=== PATIENT | female | born 1955 | race Caucasian/White ===

== ENCOUNTER 2021-09-13 09:12 | Inpatient (IN) | payer MEDICARE, OTHER, SELFPAY ==
[2021-09-13] VITALS (37 sets, daily range): BP systolic 95–140; BP diastolic 53–96; PULSE 44–74; RESP 10–17; TEMP 36.4–37.1; O2SAT 95–100; BMI 26.1
--- NOTE | 2021-09-13 09:21 | EKG12_ITS ---
Test Reason : CP Blood Pressure : / mmHG Vent. Rate : 045 BPM Atrial Rate : 045 BPM P-R Int : 170 ms QRS Dur : 088 ms QT Int : 464 ms P-R-T Axes : 052 040 084 degrees QTc Int : [address] elevation consider inferior injury or acute infarct ACUTE [place] / STEMI Consider right ventricular involvement in acute inferior infarct Abnormal ECG Confirmed by TLYER MERIDA, CYNTHIA ([id number]), editor farm journal VIVI GRAY ([id number]) on 09/15/2021 10:01:21 AM Referred By: Maya Miller Confirmed By:CYNTHIA SCOTT MD
--- NOTE | 2021-09-13 09:22 | EDS_ITS ---
HPI History of Present Illness Chief Complaint: Chest Pain Informant: patient Onset/Context/Timing Onset: Hours Activity at onset: sudden Quality: Positive for Heaviness and Pain Location: Substernal Current Severity: Moderate Maximum Severity: Severe Narrative Narrative: Patient presents via private vehicle secondary to chest pain that started 1 hour prior to arrival. She did take a full size aspirin. Patient does admit that she is been having some intermittent chest pain. She states pain radiates to her back and on her arms. She feels lightheaded and nauseated. No known history of cardiac disease. [facility] Medical History Rheumatoid arthritis Home Medications oxybutynin chloride 10 mg PO DAILY 09/13/21 [History Last Taken Unknown] Allergy/AdvReac Type Severity Reaction Status Date / Time No Known Allergies Allergy Verified 09/13/21 09:13 Surgical History Hx of section Hx of cholecystectomy Social History Smoking Status: Never smoker ROS ROS ED Constitutional Constitutional ED: Denies chills or fever(s) Eyes Eyes: Denies none ENT ENT ED: Denies rhinorrhea or sore throat Cardiovascular Cardiovascular: Reports chest pain Respiratory/Chest Respiratory/Chest: Denies cough or dyspnea Gastrointestinal Gastrointestinal: Reports nausea; Denies abdominal pain or vomiting Musculoskeletal Musculoskeletal: Reports back pain Integumentary Denies rash Neurologic Neurologic: Denies headache(s) or weakness Allergic/Immunologic Allergic/Immunologic ED: Denies urticaria EXAM Physical Exam Const Vital Signs: 09/13/21 09:13 09/13/21 09:28 09/13/21 09:33 Temperature 97.6 F L Temperature Source Oral Pulse Rate 44 L Respiratory Rate 15 14 Respiratory Effort Normal Respiratory Pattern Normal Blood Pressure 95/53 L 95/53 L Blood Pressure Mean 67 Pulse Ox 99 100 Oxygen Delivery Method Room Air Nasal Cannula Oxygen Flow Rate (L/min) 2 Positive well nourished and well developed General Appearance ED: well developed HEENT normocephalic Eyes PERRL and EOMs intact bilaterally Neck supple Chest Wall inspection of chest normal and palpation of chest normal Resp normal respiratory effort Effort and Inspection: respiratory distress Cardio Rate: bradycardia GI soft to palpation and non-tender Neuro oriented x3 Sensorium / Orientation: awake and alert Psych mental status grossly normal Skin no rashes or lesions noted Heart Score History: Highly Suspicious ECG: Significant ST-Depression Age: >/= 65 years Risk Factors: 1 or 2 Risk Factors Score: 7 MDM MDM Radiography Chest X-Ray - ED: 1 View, Read by ED Physician, Normal, Heart, Lungs and Mediastinum EKG Initial EKG: Attestation: I personally reviewed and interpreted this EKG as follows: Interpretation: Sinus Bradycardia (Sinus bradycardia at [address] elevation in the inferior leads and reciprocal changes in the anterior leads. Acute STEMI called.) Treatment and Re-Evaluation Comments:: STEMI alert initiated. Patient had taken full-size aspirin prior to arrival. She is given Zofran for nausea along with a dose of fentanyl for pain. She is given Brilinta and heparin. I spoke with Dr. Miller, STEMI physician. EKG was core texted to him. Discharge Plan Triage Chief Complaint: Chest Pain ED Provider: Estrella Odonnell Dx/Rx/DC Orders Clinical Impression: ST elevation ID (STEMI) Prescriptions: No Action oxybutynin chloride 10 mg tablet extended release 24hr 10 mg PO DAILY RF: 0 Primary Care Provider: Bandar Lopez Referrals: Bandar Lopez MD [Primary Care Provider] - Disposition Disposition: Acute Care Hospital [facility]
[2021-09-13] MEDS: Heparin Injection (Vial) 5,000 UNIT/ML VIAL 4000 UNIT IV (09:24)
[2021-09-13] MEDS: TICAGRELOR 90 MG TABLET 180 MG PO (09:24)
[2021-09-13] MEDS: Ondansetron 4 MG/2 ML Vial IV (09:26)
--- NOTE | 2021-09-13 09:26 | NURSING ---
STEMI ALERT 0921
[2021-09-13] MEDS: 0.9% Normal Saline 1,000 ML 999 ML IV (09:30)
--- NOTE | 2021-09-13 09:30 | NURSING ---
ICU 5 [facility]
[2021-09-13] MEDS: fentaNYL 100 MCG/2 ML Ampul 25 MCG IV (09:31)
--- NOTE | 2021-09-13 09:35 | RAD_ITS ---
STUDY: X-RAY CHEST REASON FOR EXAM: Female, 66 years old. Chest pain TECHNIQUE: Single AP portable view of the chest. COMPARISON: None. FINDINGS: The lungs are clear and expanded. There is no demonstrated pleural abnormality. Normal size heart. Normal mediastinum and qiana. Normal visualized pulmonary arteries. Normal visualized aortic arch and descending thoracic aorta. There are diffuse degenerative changes of the visualized thoracic spine. Normal visualized ribs, clavicles, and shoulders. There is no demonstrated abnormality of the visualized soft tissue structures of the upper abdomen. RAD/Chest 1 View (Portable) IMPRESSION: Degenerative changes, as described above. No demonstrated acute cardiopulmonary process. Electronically Signed: Niki Soils MD at 9:47 EST Reading Location ID and State: [facility] / [place] Tel , Service support ,
[2021-09-13] MEDS: 0.9% Normal Saline 1,000 ML 150 ML IV (09:40)
--- NOTE | 2021-09-13 09:43 | NURSING ---
DR POWELL ADMITTING PATIENT
[2021-09-13 09:46] LABS: Absolute Lymphocyte Count 3.09 X10^3/uL (0.83-4.51); Absolute Neutrophil Count 2.3 X10^3/uL (2.0-7.7); Basophil# 0.11 X10^3/uL; Basophil% 1.8 % (0-1); Eosinophil# 0.09 X10^3/uL; Eosinophils% 1.5 % (0-5); Hematocrit 44.2 % (37-47); Hemoglobin 14.4 g/dL (12.0-15.0); Lymphocyte # 3.09 X10^3/ul (0.83-4.51); Lymphocyte % 50.6 % (19-41); Mean Corp Hgb Conc 32.6 g/dL (32-36); Mean Corpuscular Hgb 31.4 pg (27.0-32.0); Mean Corpuscular Volume 96.3 fL (81-99); Mean Platelet Vol. 10.2 fl (6.2-12.0); Monocyte# 0.52 X10^3/uL; Monocyte% 8.5 % (0-10); NRBC Flagged by Analyzer 0 % (0-5); Neutrophil # 2.28 X10^3/uL (2.7-7.7); Neutrophil % 37.3 % (47-70); Platelet Count 256 K/mm3 (150-450); RBC Distribution Width CV 13.3 % (11.6-14.6); RBC Distribution Width SD 47.1 fl (35.1-43.9); Red Blood Count 4.59 M/mm3 (4.2-5.4); White Blood Count 6.1 K/mm3 (4.4-11.0)
[2021-09-13 10:04] LABS: Anion Gap 8 (5-15); BUN 18 mg/dL (7-18); BUN/Creat Ratio 19.5 RATIO (10-20); Calcium,Total 8.8 mg/dL (8.5-10.1); Chloride 108 mmol/L (98-107); Creatinine, Serum 0.92 mg/dL (0.55-1.02); EST Glomerular Filtration Rate 65 mL/min (>60); Est Glom Filt Rate - Afr Amer 78 mL/min (>60); Estimated Creatinine Clearance 47.57 ml/min; Glucose 146 mg/dL (74-106); Potassium 3.4 mmol/L (3.5-5.1); Sodium Level 139 mmol/L (136-145); Troponin-I HS 83 pg/mL (3.0-54.0)
[2021-09-13] MEDS: Potassium Chloride Oral Tablet 20 MEQ 40 MEQ PO (10:15)
[2021-09-13 11:08] LABS: International Normalized Ratio 1.1; Prothrombin Time (Protime)PT. 13.6 SECONDS (11.7-14.9)
[2021-09-13 11:27] LABS: Partial Thromboplast Time > 250.0 Seconds (24.1-36.2)
--- NOTE | 2021-09-13 12:00 | EKG12_ITS ---
Test Reason : AM EKG Blood Pressure : / mmHG Vent. Rate : 058 BPM Atrial Rate : 058 BPM P-R Int : 146 ms QRS Dur : 080 ms QT Int : 412 ms P-R-T Axes : 067 028 -30 degrees QTc Int : 404 ms Sinus bradycardia T wave abnormality, consider inferior ischemia T wave abnormality, consider anterior ischemia Abnormal ECG When compared with ECG of 13-SEP-2021 12:14, MANUAL COMPARISON REQUIRED, DATA IS UNCONFIRMED Confirmed by TYLER MERIDA, CYNTHIA ([id number]), design editor VIVI GRAY ([id number]) on 09/16/2021 11:08:02 AM Referred By: Maya Miller Confirmed By:CYNTHIA SCOTT MD
--- NOTE | 2021-09-13 12:04 | PCM.HP.STD ---
HPI - General General Date of Admission: 09/13/21 Date of Service: 09/13/21 Chief Complaint: Chest pain HPI Narrative ZAIDA YOUNG, is a 66 F who presents to the urgency room at [facility] with complaints of chest pain which she described as a pressure-like sensation in her precordial area, she also complained of mid back pain and pain down both of her arms. She had no history of heart disease, she was at rest when the pain started today. This started approximately 1/2 hours before she was seen in the emergency room at [facility]. EKG was obtained immediately upon arrival to the emergency room and it showed evidence of an acute inferior wall [place] with reciprocal ST depression in the lateral precordial leads. Patient was given IV heparin and Brilinta, she had taken an aspirin at home. Patient was taken emergently to the Carbon Paper Coating Supervisor, cardiac catheterization was performed with insertion of the drug-eluting stents in the right coronary artery and LAD. Lab work showed an elevated troponin, potassium was 3.4, no acute cardiopulmonary process was noted on the patient's chest x-ray. Patient was transferred to ICU for further care after her catheterization. [facility] Medical History Rheumatoid arthritis Home Medications oxybutynin chloride 10 mg PO DAILY 09/13/21 [History Last Taken Unknown] Allergy/AdvReac Type Severity Reaction Status Date / Time No Known Allergies Allergy Verified 09/13/21 09:13 Surgical History Hx of section Hx of cholecystectomy Social History Smoking Status: Never smoker ROS Constitutional Constitutional: Denies anorexia, change in weight, fever(s), night sweats or weakness Eyes Eyes: Denies blurry vision, change in vision, discharge from eye(s) or eye pain Cardiovascular Cardiovascular: Reports chest pain; Denies claudication, edema, lightheadedness, orthopnea or palpitations Respiratory/Chest Respiratory/Chest: Denies cough, dyspnea, excessive phlegm production, hemoptysis, productive cough, shortness of breath at rest or shortness of breath with exertion Gastrointestinal Gastrointestinal: Denies abdominal pain, constipation, diarrhea, hematemesis, hematochezia, melena, nausea or vomiting Genitourinary Genitourinary: Denies dysuria, hematuria, urinary frequency, urinary hesitancy, urinary incontinence or urinary urgency Musculoskeletal Musculoskeletal: Reports other Details: Patient complained of bilateral arm pain during her episode of chest pain ; Denies back pain, joint pain, joint stiffness, joint swelling, myalgias or neck pain Neurologic Neurologic: Denies abnormal gait, abnormal speech, dizziness, focal weakness, headache(s), loss of vision, numbness, other visual disturbances, paresthesias, syncope or tingling Psychiatric Psychiatric: Denies anxiety, cognitive impairment, depression, irritability, mood swings or suicidal ideation Endocrine Endocrinology: Denies change in body appearance, cold intolerance, excessive sweating, heat intolerance, polydipsia or polyuria Hematologic/Lymphatic Hematologic/Lymphatic: Denies none, anemia, easy bleeding, easy bruising or lymphadenopathy Allergic/Immunologic Allergic/Immunologic: Denies rhinitis, urticaria, eczemia or asthma Vital Signs Vital Signs Vital Signs: 09/13/21 09:13 09/13/21 09:28 09/13/21 09:33 Temperature 97.6 F L Temperature Source Oral Pulse Rate 44 L Respiratory Rate 15 14 Respiratory Effort Normal Respiratory Pattern Normal Blood Pressure 95/53 L 95/53 L Blood Pressure Mean 67 Pulse Ox 99 100 Oxygen Delivery Method Room Air Nasal Cannula Oxygen Flow Rate (L/min) 2 09/13/21 09:43 Temperature 97.7 F L Temperature Source Oral Pulse Rate 44 L Respiratory Rate 15 Respiratory Effort Respiratory Pattern Blood Pressure 99/64 Blood Pressure Mean 75 Pulse Ox 100 Oxygen Delivery Method Nasal Cannula Oxygen Flow Rate (L/min) 2 Weight Weight: 64.7 kg Body Mass Index (BMI) 26.1 Physical Exam Const alert, oriented x3 and healthy appearing Constitutional Narrative: Patient was in moderate distress from chest discomfort General Appearance: cooperative, well kempt and well developed Orientation / Consciousness: awake, oriented to person, oriented to place and oriented to time HEENT normocephalic, head/scalp atraumatic, hearing grossly normal bilaterally and moist oral mucous membranes Eyes PERRL, EOMs intact bilaterally and conjunctivae normal Neck nuchal rigidity, supple, no JVD, thyroid normal and no carotid bruits General: trachea midline Resp normal respiratory effort, no retractions, no use of accessory muscles and clear to auscultation bilaterally Auscultation: Negative for rales, rhonchi or wheezes Cardio regular rate, regular rhythm, S1 normal heart sound, S2 normal heart sound, no murmurs, no rub and no gallops GI normal to inspection, nondistended, normoactive bowel sounds, soft to palpation, non-tender and non-distended Extremity normal to inspection and no clubbing, cyanosis or edema Skin no rashes or lesions noted, no wounds and skin turgor normal General Skin Exam: no breakdown Neuro oriented x3, CN's II-XII intact bilaterally, no focal motor deficits and no sensory deficits noted Sensorium / Orientation: awake and alert Speech: speech normal Psych affect normal Results Lab / Micro Data Result Diagrams: 09/13/21 09:30 09/13/21 09:30 Labs: Laboratory Results - last 24 hr 09/13/21 09:30: WBC 6.1, RBC 4.59, Hgb 14.4, Hct 44.2, MCV 96.3, MCH 31.4, MCHC 32.6, RDW Std Deviation 47.1 H, RDW Coeff of Jason 13.3, Plt Count 256, MPV 10.2, Immature Gran % (Auto) 0.300, Neut % (Auto) 37.3 L, Lymph % (Auto) 50.6 H, [place] % (Auto) 8.5, Eos % (Auto) 1.5, Baso % (Auto) 1.8 H, Absolute Neuts (auto) 2.3, Absolute Lymphs (auto) 3.09, Nucleated RBC % 0 09/13/21 09:30: Sodium 139, Potassium 3.4 L, Chloride 108 H, Carbon Dioxide 23.0, Anion Gap 8, BUN 18, Creatinine 0.92, Estim Creat Clear Calc 47.57, Est GFR (MDRD) Af Amer 78, Est GFR (MDRD) Non-Af 65, BUN/Creatinine Ratio 19.5, Glucose 146 H, Calcium 8.8, Troponin I High Sens 83 H 09/13/21 09:49: PT 13.6, INR 1.1, APTT > 250.0 H* Radiology Impression Chest X-Ray 09/13/21 09:35 IMPRESSION: Degenerative changes, as described above. No demonstrated acute cardiopulmonary process. Electronically Signed: Niki Solis MD at 9:47 EST , Assessment & Plan Assessment/Plan (1) ST elevation [place] (STEMI): QUALIFIERS: Involved coronary artery: right coronary artery Qualified Code(s): I21.11 - ST elevation (STEMI) myocardial infarction involving right coronary artery PLAN: 1. Acute ST elevation [place]-patient will be admitted to ICU following her cardiac catheterization which revealed occlusive coronary disease in her LAD and right coronary artery, she will be maintained on a statin, Brilinta, aspirin, and a beta-michael (if her blood pressure allows). Cardiology is following her care #2 occlusive coronary disease right coronary artery and LAD-see above for treatment #3 rheumatoid arthritis-patient is currently on no medications for her rheumatoid arthritis #4 hypokalemia-patient's labs will be monitored, oral potassium will be administered Charges/Coding Visit Charges Inpatient E&M: 15294 Init Hosp L3
--- NOTE | 2021-09-13 12:06 | CON.PCM.CA_ITS ---
Assessment & Plan Assessment/Plan (1) ST elevation [place] (STEMI): QUALIFIERS: Involved coronary artery: right coronary artery Qualified Code(s): I21.11 - ST elevation (STEMI) myocardial infarction involving right coronary artery PLAN: Patient required PCI of the RCA and LAD. These were treated with drug-eluting stents. She is being admitted to the CCU for further management. We will keep her on aspirin, Brilinta, low-dose beta-michael if her heart rate can tolerate, statin. EF was preserved. We will hold off on RIYA inhibitor's due to borderline blood pressure. HPI Consult Data Date of Consult: 09/13/21 HPI Narrative HPI Narrative: ZAIDA YOUNG, is a 66 F who presents with chest pain. EKG in the emergency room was suspicious for inferior ST elevation [place] and a STEMI alert was called. Patient was brought emergently to the cardiac Debt And Budget Counselor. She was evaluated prior to the procedure. She underwent coronary angiography which revealed 95% stenosis in the mid RCA that was treated with drug-eluting stent. Her LAD also had a 99% thrombotic lesion in the midportion. This was treated with thrombectomy and drug-eluting stent placement. Patient had preserved EF. She was doing well at the end of the procedure and is being transferred to the CCU for further management of her ST elevation [place]. Review of systems: All systems reviewed. All else is negative except as in HPI PFSH Medical History Rheumatoid arthritis Home Medications oxybutynin chloride 10 mg PO DAILY 09/13/21 [History Last Taken Unknown] Allergy/AdvReac Type Severity Reaction Status Date / Time No Known Allergies Allergy Verified 09/13/21 09:13 Surgical History Hx of section Hx of cholecystectomy Social History Smoking Status: Never smoker Physical Exam Const alert and oriented x3 Orientation / Consciousness: awake HEENT normocephalic Eyes no scleral icterus Neck supple Cardio regular rate and regular rhythm Extremity no pedal edema Neuro oriented x3 Risk Stratification Risk Stratification Applicable: No Charges/Coding Visit Charges Inpatient E&M: 47353 Init Hosp L3 Objective Data Vital Signs: Vital Signs Temp Pulse Resp BP Pulse Ox 97.7 F L 44 L 15 99/64 100 09/13/21 09:43 09/13/21 09:43 09/13/21 09:43 09/13/21 09:43 09/13/21 09:43 Oxygen Flow Rate (L/min) 2 Oxygen Delivery Method Nasal Cannula Weight: 142 lb 10.225 oz Body Mass Index (BMI) 26.1 Lab / Micro Data Result Diagrams: 09/13/21 09:30 09/13/21 09:30 Labs: Laboratory Results - last 24 hr 09/13/21 09:30: WBC 6.1, RBC 4.59, Hgb 14.4, Hct 44.2, MCV 96.3, MCH 31.4, MCHC 32.6, RDW Std Deviation 47.1 H, RDW Coeff of Jason 13.3, Plt Count 256, MPV 10.2, Immature Gran % (Auto) 0.300, Neut % (Auto) 37.3 L, Lymph % (Auto) 50.6 H, [place] % (Auto) 8.5, Eos % (Auto) 1.5, Baso % (Auto) 1.8 H, Absolute Neuts (auto) 2.3, Absolute Lymphs (auto) 3.09, Nucleated RBC % 0 09/13/21 09:30: Sodium 139, Potassium 3.4 L, Chloride 108 H, Carbon Dioxide 23.0, Anion Gap 8, BUN 18, Creatinine 0.92, Estim Creat Clear Calc 47.57, Est GFR (MDRD) Af Amer 78, Est GFR (MDRD) Non-Af 65, BUN/Creatinine Ratio 19.5, Glucose 146 H, Calcium 8.8, Troponin I High Sens 83 H 09/13/21 09:49: PT 13.6, INR 1.1, APTT > 250.0 H* Cardiology Labs/Tests 09/13/21 09:30: WBC 6.1, RBC 4.59, Hgb 14.4, Hct 44.2, MCV 96.3, MCH 31.4, MCHC 32.6, Plt Count 256, MPV 10.2, Immature Gran % (Auto) 0.300, Neut % (Auto) 37.3 L, Lymph % (Auto) 50.6 H, [place] % (Auto) 8.5, Eos % (Auto) 1.5, Baso % (Auto) 1.8 H, Absolute Neuts (auto) 2.3, Nucleated RBC % 0 09/13/21 09:30: Sodium 139, Potassium 3.4 L, Chloride 108 H, Carbon Dioxide 23.0, Anion Gap 8, BUN 18, Creatinine 0.92, Est GFR (MDRD) Af Amer 78, Est GFR (MDRD) Non-Af 65, BUN/Creatinine Ratio 19.5, Glucose 146 H, Calcium 8.8 09/13/21 09:49: PT 13.6, INR 1.1, APTT > 250.0 H* Rhythm: EKG: ECHO: Stress Test: Cardiac Cath: PCI: CT Surgery: Holter monitor: EPS: PPM: CXR: Chest CT Scan: Radiography Diagnostic Testing: Radiology Impression Chest X-Ray 09/13/21 09:35 IMPRESSION: Degenerative changes, as described above. No demonstrated acute cardiopulmonary process. Electronically Signed: Niki Solis MD at 9:47 EST Reading Location ID and State: [facility] / [place] Tel , Service support ,
--- NOTE | 2021-09-13 12:16 | CRPHASE1_ITS ---
Patient Communication PHII Cardiac Rehab Discussed with Patient:: Yes Guide to Cardiac Rehab Given to Patient:: Yes Cardiac Rehab Facility Choice List Given to Patient:: Yes Choice Program [facility] CR PHII:: Communication Given to CR Choice Program Other:: Communication Given to CR Pot Reliner:: Maya Miller Phase II Cardiac Rehab:: Yes Sessions:: 36 sessions - 3 days/wk, 12 weeks Choice Letter Given to Patient:: Yes Guide to Cardiac Rehab Given by ICU Staff Prior to Discharge: Yes Cardiac Rehabilitation Info Cardiac Rehabilitation Program Information: Cardiac Rehabilitation is important for patients like you who are recovering from a heart problem. Cardiac rehabilitation programs are recognized as integral to the continued care of the patient with coronary heart disease. The cardiac rehabilitation program is designed to optimize a patient's physical, psychological, and social functioning. Health animal care provider work in cardiac rehabilitation programs and assist you with getting the treatments you need to get stronger and healthier - like exercise, healthy eating habits, and medications. Cardiac rehabilitation has been show to help people with heart problems live longer and have better life enjoyment than people who do not go to cardiac rehabilitation. Please contact the Cardiac Rehabilitation Program at [facility] at in two weeks if you have not heard from them.
--- NOTE | 2021-09-13 12:17 | CRPH1.INSTRU ---
General Education CAD and cardiac anatomy and function:: Patient communicates acknowledgment Explanation of diagnoses and procedures:: Patient communicates acknowledgment Sign/Symptoms of ND:: Patient communicates acknowledgment Antiplatelet therapy: Patient communicates acknowledgment Smoking Patient Nicotine/Smoking Risk Factors Are:: Never smoked Dyslipidemia Patient Dyslipidemia Risk Factors Are:: Total Cholesterol, Triglycerides, HDL, LDL Recommendations Include:: Lipid profile not available, Reviewed NCEP/ATP guidelines, Therapeutic Lifestyle Change dietary guidelines Dyslipidemia Response Code:: Patient communicates acknowledgment Overweight/Obesity Patient Overweight/Obesity Risk Factors Are:: Overweight = 26-29 Recommendations Include:: Weight loss of 5-10%, Reduced calorie diet Overweight/Obesity:: Patient communicates acknowledgment Hypertension Patient Hypertension Risk Factors Are:: No documented hx of HTN Diabetes Patient Diabetes Risk Factors Are:: No documented hx of diabetes Stress Recommendations Include:: Identification of stressors, and assessment of coping skills, Stress management techniques Stress Response Code:: Patient communicates acknowledgment
--- NOTE | 2021-09-13 12:23 | CL.I_ITS ---
Patient Name: ZAIDA YOUNG Study Date: 09/13/2021 Performing: Jean Claude Miller MD Ht: 62 inches 157 cm : 1955 Wt: 143.5 lbs 65 kg Age: 66 Gender: female BSA: 1.66 PROCEDURE(S) PERFORMED DC01-(69537)LHC/COR/LV IC16-([id number]/[id number])AMI, BRUCE OR PTCA, ARTERY/GRAFT, SINGLE VESSEL IC12-(85206/C9600)BRUCE W/WO PTCA, SINGLE CORONARY ARTERY CLINICAL PROFILE AND CO-MORBIDITIES Indications: ACS <= 24 hrs Heart Failure: None Stress/Imaging Stress/Image Study Performed: No CAD Presentations: STEMI. Symptom onset Date/Time: 09/13/21 Time: 8am CONCLUSIONS CAD as described. Preserved LVEF. No significant aortic stenosis or mitral regurgitation. Successf ul PCI of mid RCA and mid LAD with drug-eluting stents. RECOMMENDATIONS DESCRIPTION OF PROCEDURE The patient arrived to the procedure lab. The risks and benefits of the procedure as well as a full d escription of our services here and lack of surgical backup were fully explained to the patient and/o r their significant other prior to the catheterization. The Timeout was completed, verifying the kimberly ect patient and procedure. The patient's procedural site was prepped and draped in the usual fashion. Local anesthetic was given subcutaneously to right radial region with Lidocaine 2%. Local anesthetic was given subcutaneously to right groin region with Lidocaine 2%. Using a modified Seldinger techniq ue, arterial access was obtained via the right radial artery, a 6Fr sheath was inserted., arterial ac cess was obtained via the right femoral artery, a 6Fr sheath was inserted.. Right Coronary Artery se lective angiography was then performed in multiple views using a 6 Fr. JR 4 catheter. Left Coronary A rtery selective angiography was performed in multiple views using a 5 Fr. JL3.5 catheter. Left Ventriculography was performed in MYERS projection using a 5 Fr. Pigtail catheter. LV to AO pullba ck pressures were then recorded. Right Coronary Artery selective angiography was then performed in mu ltiple views using a 5 Fr. JR 4 catheterThe images were reviewed and options discussed. A decision wa s then made to proceed with an Intervention, IVUS or other adjunct procedure. jr 4 Guide catheter was inserted and engaged into the RCA. bmw Guide wire was advanced to the RCA . bmw Guide wire was inserted emerge 2.5 x 12 Balloon catheter was advanced across lesion in the righ t coronary, mid. PTCA balloon inflated at 6 atms for 10 secs. Angiogram performed post balloon dilata tion. osiro 3.5 x 13 Drug Eluting stent was advanced across the lesion in the right coronary, mid. An giogram performed post stent deployment. bmw Guide wire was repositioned to the LAD xb 3.0 guide Guid e catheter was inserted and engaged into the LCA. Priority One inserted Pass # 1 Priority One Removed xb3 Guide catheter was inserted and engaged into the LCA. emerge 2.00 x 12 Balloon catheter was adva nced across lesion in the LAD, mid. PTCA balloon inflated at 6 atms for 9 secs. PTCA balloon inflated at 6 atms for 8 secs. PTCA balloon inflated at 8 atms for 14 secs. Angiogram performed post balloon dilatation. PTCA balloon inflated at 6 atms for 8 secs. Angiogram performed post balloon dilatation. synergy 2.5 x 38 Drug Eluting stent was advanced across the lesion in the LAD, mid. Angio gram performed post stent deployment. Balloon catheter was inserted post stent. Angiogram performed p ost balloon dilatation. Contrast was injected through the sheath and the Right Iliac and Femoral cris ry were assessed for possible closure device. The arterial sheath was pulled and a TR Band was appli ed for hemostasis CORONARY ANGIOGRAPHY DOMINANCE: Right Dominant LEFT HEART ASSESSMENT Left Ventricular Ejection Fraction: by LV Gram 55 % Normal LV wall motion Patient's right subclavian artery had a more distal takeoff that made engaging the vessels from the r adial access difficult. We tried to insert a 70 cm 6 Faroese Rabie sheath but this did not advance fu lly. We had to switch to right femoral access. The procedure was completed successfully without any complications through the right femoral access. However patient's vascular anatomy led to delay to PCI. LEFT MAIN: Mild luminal irregularities LEFT ANTERIOR DESCENDING ARTERY: MID LAD: 99 % Stenosis CIRCUMFLEX ARTERY: Mild luminal irregularities RIGHT CORONARY ARTERY: MID RCA: 95 % Stenosis VALVE FINDINGS: No Aortic Valve Stenosis No Mitral Insufficency INTERVENTION INFORMATION LESION SITE: RCA (Mid) Lesion Complexity: High/C, chronic total occlusion: No, lesion at bifurcation: Yes, thrombus present: No, lesion length: 10 mm, culprit lesion: Yes, Previously treated lesion: No Pre Stenosis: 95 % Pre intervention JAMAL flow: 3 PROCEDURE: Drug Eluting Stent with pre dilatation. Post Stenosis: 0 % Post intervention JAMAL flow: 3 Lesion Devices: Nate Sci EMERGE MR 2.50x12 BALLOON Biotronik Orsiro [place] MR BRUCE 3.5x13 LESION SITE: LAD (Mid) Lesion Complexity: High/C, chronic total occlusion: No, lesion at bifurcation: Yes, thrombus present: Yes, lesion length: 37 mm, culprit lesion: Yes, Previously treated lesion: No Pre Stenosis: 99 % Pre intervention JAMAL flow: 1 PROCEDURE: Thrombectomy Drug Eluting Stent with pre and post dilatation Post Stenosis: 0 % Post intervention JAMAL flow: 3 Lesion Devices: Terumo Priority One Aspiration Catheter Nate Sci EMERGE MR 2.00x12 BALLOON Nate Sci Synergy MR BRUCE 2.25x38 Nate Sci NC EMERGE MR 2.50x20 BALLOON COMPLICATIONS No Complications PROCEDURE MEDICATIONS Fentanyl 25 mcg IV Oxygen: 2 L/min via nasal cannula Heparin 2000 unit(s) IV 09/13/2021 10:34:09 Nitro 200 mcg IC 09/13/2021 11:01:16 Potassium Chloride 40 mEq PO 09/13/2021 10:18:04 SUMMARY OF HEMODYNAMIC DATA Time AIR REST ECG 10:04:10 AO 118/65 (89) SA 10:20:57 AO 132/63 (92) 10:48:59 LV 146/9, 19 11:17:59 LV 140/6, 21 11:18:06 LVp 147/18, 33 11:19:42 AOp 155/78 (110) 11:19:48 Signed By Jean Claude Miller MD On 09/13/2021 12:22:04 Jean Claude Miller MD
[2021-09-13 12:35] LABS: ACT Activated Clotting Time 202 sec (74-137)
[2021-09-13] MEDS: 0.9% Normal Saline 1,000 ML 60 ML IV (13:07)
[2021-09-13 13:36] LABS: ACT Activated Clotting Time 178 sec (74-137)
[2021-09-13] MEDS: Acetaminophen 325 MG Tablet 650 MG PO (18:33)
[2021-09-13] MEDS: Metoprolol Tartrate 25 MG Tablet 12.5 MG PO (21:21)
[2021-09-13] MEDS: Atorvastatin Calcium 80 MG Tablet PO (21:21)
[2021-09-13] MEDS: TICAGRELOR 90 MG TABLET PO (21:22)
[2021-09-14] VITALS (20 sets, daily range): BP systolic 93–131; BP diastolic 56–78; PULSE 56–80; RESP 11–18; TEMP 36.6–36.7; O2SAT 97–100
[2021-09-14] MEDS: Acetaminophen 325 MG Tablet 650 MG PO ×2 (02:57→12:36)
[2021-09-14 03:43] LABS: Hematocrit 37.3 % (37-47); Hemoglobin 12.9 g/dL (12.0-15.0); Mean Corp Hgb Conc 34.6 g/dL (32-36); Mean Corpuscular Hgb 32.2 pg (27.0-32.0); Mean Platelet Vol. 9.8 fl (6.2-12.0); Platelet Count 264 K/mm3 (150-450); RBC Distribution Width CV 13.2 % (11.6-14.6); RBC Distribution Width SD 45.1 fl (35.1-43.9); Red Blood Count 4.01 M/mm3 (4.2-5.4); White Blood Count 7.4 K/mm3 (4.4-11.0)
[2021-09-14 04:13] LABS: ALB/GLOB Ratio 0.9 RATIO (0.9-2.4); AST(SGOT) 64 U/L (15-37); Alanine Aminotransfer ALT/SGPT 32 U/L (13-56); Albumin, Serum 3.1 g/dL (3.2-5.0); Alkaline Phosphatase 45 U/L (45-117); Anion Gap 5 (5-15); BUN 11 mg/dL (7-18); BUN/Creat Ratio 18.7 RATIO (10-20); Calcium,Total 8.3 mg/dL (8.5-10.1); Chloride 109 mmol/L (98-107); Creatinine, Serum 0.59 mg/dL (0.55-1.02); EST Glomerular Filtration Rate 109 mL/min (>60); Est Glom Filt Rate - Afr Amer 132 mL/min (>60); Estimated Creatinine Clearance 43.77 ml/min; Globulin 3.3 g/dL (2.2-4.2); Glucose 82 mg/dL (74-106); Potassium 3.8 mmol/L (3.5-5.1); Protein, Total 6.4 g/dL (6.4-8.2); Sodium Level 139 mmol/L (136-145)
[2021-09-14] MEDS: Aspirin E.C. 81 MG Tablet PO (09:21)
[2021-09-14] MEDS: Tolterodine Tartrate 2 MG CAP.SA PO (09:21)
[2021-09-14] MEDS: TICAGRELOR 90 MG TABLET PO ×2 (09:21→21:42)
[2021-09-14] MEDS: Metoprolol Tartrate 25 MG Tablet 12.5 MG PO ×2 (09:21→21:43)
--- NOTE | 2021-09-14 09:31 | ECHOD_ITS ---
Reason For Study: STEMI Procedure This was a 2D Doppler, Color Flow transthoracic echocardiogram. Exam performed portable in patient room. Left Ventricle Normal LV size. Left ventricular systolic function is normal. The estimated ejection fraction is 60 %. Stage 1 diastolic dysfunction. No regional wall motion abnormalities noted. Right Ventricle Normal RV size. Normal systolic function. Atria Normal left atrium. Normal right atrium. Mitral Valve Normal mitral valve. Trivial mitral valve insufficiency. Tricuspid Valve Normal tricuspid valve. Mild tricuspid valve insufficiency. Aortic Valve Normal aortic valve. Trisinus/trileaflet aortic valve. Pulmonic Valve Normal pulmonic valve. Great Vessels Normal aortic root. The pulmonary artery is normal size. Normal inferior vena cava. Pericardium/Pleural No pericardial effusion. MMode/2D Measurements & Calculations LVIDd: 3.2 cm IVSd: 1.0 cm Ao root diam: 2.9 cm LVIDs: 2.1 cm LVPWd: 0.90 cm RVDd: 2.8 cm FS: 35.4 % LAV(MOD-bp): 25.5 ml LVAd ap4: 20.6 cm2 LVAd ap2: 20.1 cm2 LAV(MOD-bp) Indexed: 15.6 ml/m2 LVLd ap4: 7.2 cm LVLd ap2: 7.2 cm LAV(MOD-sp2): 25.2 ml EDV(MOD-sp4): 49.0 ml EDV(MOD-sp2): 47.6 ml LAV(MOD-sp4): 21.1 ml EDV(sp4-el): 50.5 ml EDV(sp2-el): 47.4 ml LVAs ap4: 11.4 cm2 LVAs ap2: 10.1 cm2 LVLs ap4: 5.9 cm LVLs ap2: 5.8 cm ESV(MOD-sp4): 18.8 ml ESV(MOD-sp2): 15.4 ml ESV(sp4-el): 18.6 ml ESV(sp2-el): 14.9 ml EF(MOD-sp4): 61.6 % EF(MOD-sp2): 67.6 % EF(sp4-el): 63.1 % SV(MOD-sp4): 30.2 ml SV(MOD-sp2): 32.2 ml SV(sp4-el): 31.9 ml LA dimension(2D): 3.6 cm LA A4 area: 10.1 cm2 RA A4 area: 9.3 cm2 Doppler Measurements & Calculations MV E max omega: 60.4 cm/sec Lat Peak E' Omega: 7.9 cm/sec Med Peak E' Omega: 4.9 cm/sec MV A max omega: 90.2 cm/sec E/E' lat: 7.6 E/E' med: 12.3 MV E/A: 0.67 Ao V2 max: 119.1 cm/sec LV V1 max: 84.6 cm/sec TV V2 max: 218.2 cm/sec Ao max P.7 mmHg LV V1 max P.9 mmHg TV max P.1 mmHg PA V2 max: 66.9 cm/sec ECHO/Echo Complete Interpretation Summary Normal LV size. Left ventricular systolic function is normal. The estimated ejection fraction is 60 %. Stage 1 diastolic dysfunction. Mild tricuspid valve insufficiency. Trivial mitral valve insufficiency. Ordering Physician: Enoc Mello Referring Physician: Bandar Lopez Performed By: Dionne Medel RDCS, RVT
--- NOTE | 2021-09-14 09:46 | PN.CARD_ITS ---
Subjective Subjective Patient seen and evaluated and doing well Objective Data Vital Signs: Vital Signs Temp Pulse Resp BP Pulse Ox 97.8 F 75 11 L 100/78 100 09/14/21 08:00 09/14/21 09:21 09/14/21 08:00 09/14/21 09:21 09/14/21 08:00 Oxygen Flow Rate (L/min) 2 Oxygen Delivery Method Room Air Weight: 139 lb 15.896 oz Body Mass Index (BMI) 26.1 Intake & Output: Intake and Output for Last 24 Hours 09/12/21 09/13/21 09/14/21 23:59 23:59 23:59 Intake Total 2032.5 / 2152.5 1200 / 1200 Output Total 300 / 650 350 / 350 Balance 1732.5 / 1502.5 850 / 850 Lab / Micro Data Result Diagrams: 09/14/21 03:05 09/14/21 03:05 Labs: Laboratory Results - last 24 hr 09/13/21 09:30: WBC 6.1, RBC 4.59, Hgb 14.4, Hct 44.2, MCV 96.3, MCH 31.4, MCHC 32.6, RDW Std Deviation 47.1 H, RDW Coeff of Jason 13.3, Plt Count 256, MPV 10.2, Immature Gran % (Auto) 0.300, Neut % (Auto) 37.3 L, Lymph % (Auto) 50.6 H, [place] % (Auto) 8.5, Eos % (Auto) 1.5, Baso % (Auto) 1.8 H, Absolute Neuts (auto) 2.3, Absolute Lymphs (auto) 3.09, Nucleated RBC % 0 09/13/21 09:30: Sodium 139, Potassium 3.4 L, Chloride 108 H, Carbon Dioxide 23.0, Anion Gap 8, BUN 18, Creatinine 0.92, Estim Creat Clear Calc 47.57, Est GFR (MDRD) Af Amer 78, Est GFR (MDRD) Non-Af 65, BUN/Creatinine Ratio 19.5, Glucose 146 H, Calcium 8.8, Troponin I High Sens 83 H 09/13/21 09:49: PT 13.6, INR 1.1, APTT > 250.0 H* 09/13/21 12:20: Activated Clotting Time 202 H 09/13/21 13:23: Activated Clotting Time 178 H 09/14/21 03:05: WBC 7.4, RBC 4.01 L, Hgb 12.9, Hct 37.3, MCV 93.0, MCH 32.2 H, MCHC 34.6 D, RDW Std Deviation 45.1 H, RDW Coeff of Jason 13.2, Plt Count 264, MPV 9.8 09/14/21 03:05: Sodium 139, Potassium 3.8, Chloride 109 H, Carbon Dioxide 25.0, Anion Gap 5, BUN 11, Creatinine 0.59, Estim Creat Clear Calc 43.77, Est GFR (MDRD) Af Amer 132, Est GFR (MDRD) Non-Af 109, BUN/Creatinine Ratio 18.7, Glucose 82, Calcium 8.3 L, Total Bilirubin 0.50, AST 64 H, ALT 32, Alkaline Phosphatase 45, Total Protein 6.4, Albumin 3.1 L, Globulin 3.3, Albumin/Globulin Ratio 0.9 Cardiology Labs/Tests 09/13/21 09:30: WBC 6.1, RBC 4.59, Hgb 14.4, Hct 44.2, MCV 96.3, MCH 31.4, MCHC 32.6, Plt Count 256, MPV 10.2, Immature Gran % (Auto) 0.300, Neut % (Auto) 37.3 L, Lymph % (Auto) 50.6 H, [place] % (Auto) 8.5, Eos % (Auto) 1.5, Baso % (Auto) 1.8 H, Absolute Neuts (auto) 2.3, Nucleated RBC % 0 09/13/21 09:30: Sodium 139, Potassium 3.4 L, Chloride 108 H, Carbon Dioxide 23.0, Anion Gap 8, BUN 18, Creatinine 0.92, Est GFR (MDRD) Af Amer 78, Est GFR (MDRD) Non-Af 65, BUN/Creatinine Ratio 19.5, Glucose 146 H, Calcium 8.8 09/13/21 09:49: PT 13.6, INR 1.1, APTT > 250.0 H* 09/14/21 03:05: WBC 7.4, RBC 4.01 L, Hgb 12.9, Hct 37.3, MCV 93.0, MCH 32.2 H, MCHC 34.6 D, Plt Count 264, MPV 9.8 09/14/21 03:05: Sodium 139, Potassium 3.8, Chloride 109 H, Carbon Dioxide 25.0, Anion Gap 5, BUN 11, Creatinine 0.59, Est GFR (MDRD) Af Amer 132, Est GFR (MDRD) Non-Af 109, BUN/Creatinine Ratio 18.7, Glucose 82, Calcium 8.3 L, Total Bilirubin 0.50 Rhythm: EKG: ECHO: Stress Test: Cardiac Cath: PCI: CT Surgery: Holter monitor: EPS: PPM: CXR: Chest CT Scan: Radiography Diagnostic Testing: Radiology Impression Chest X-Ray 09/13/21 09:35 IMPRESSION: Degenerative changes, as described above. No demonstrated acute cardiopulmonary process. Electronically Signed: Niki Solis MD at 9:47 EST Reading Location ID and State: [facility] / [place] Tel , Service support , Physical Exam Const alert, oriented x3 and no apparent distress General Appearance: cooperative HEENT hearing grossly normal bilaterally Head and Scalp: atraumatic Eyes EOMs intact bilaterally Neck General: normal visual inspection Chest inspection of chest normal and palpation of chest normal Resp normal respiratory effort Auscultation: clear to auscultation bilaterally Cardio regular rate, regular rhythm, S1 normal heart sound and S2 normal heart sound Jugular Venous Distention: JVD GI normal to inspection, nondistended, normoactive bowel sounds Extremity normal capillary refill and no pedal edema Peripheral Pulses: Yes pulses 2+ throughout and femoral pulses present Skin no rashes or lesions noted Neuro oriented x3 and CN's II-XII intact bilaterally Psych Appearance: grossly normal and appropriate Assessment & Plan Assessment/Plan (1) ST elevation CA (STEMI): QUALIFIERS: Involved coronary artery: right coronary artery Qualified Code(s): I21.11 - ST elevation (STEMI) myocardial infarction involving right coronary artery PLAN: Patient is status post ST elevation myocardial infarction involving the inferior wall and likely anterior wall as well. She underwent angioplasty and stenting of the right coronary artery as well as the mid left anterior descending artery this morning she is doing well without any complaints. Would recommend the following: Transferred to progressive care unit Start cardiac rehabilitation Continue aspirin Continue Brilinta Continue low-dose beta-michael Continue high intensity statin Start low intensity RIYA inhibitor Echocardiogram in a.m. Above discussed with patient, hospitalist, nursing.
--- NOTE | 2021-09-14 10:48 | PN.HOSP_ITS ---
Subjective Subjective Patient was seen and examined today, she appears medically stable at this time, she does not complain of any chest pain or shortness of breath. Patient underwent insertion of a BRUCE in the right coronary artery and the mid left anterior descending artery, cardiology feels that her STEMI involved the inferior wall and likely the anterior wall. I talked briefly with cardiology about her care today. Objective Data Objective Data Vital Signs: Vital Signs Temp Pulse Resp BP Pulse Ox 97.8 F 73 12 102/61 98 09/14/21 08:00 09/14/21 10:00 09/14/21 10:00 09/14/21 10:00 09/14/21 10:00 Oxygen Flow Rate (L/min) 2 Oxygen Delivery Method Room Air Weight: 63.5 kg Body Mass Index (BMI) 26.1 Intake & Output: Intake and Output for Last 24 Hours 09/12/21 09/13/21 09/14/21 23:59 23:59 23:59 Intake Total 2032.5 / 2152.5 1200 / 1200 Output Total 300 / 650 350 / 350 Balance 1732.5 / 1502.5 850 / 850 Lab / Micro Data Result Diagrams: 09/14/21 03:05 09/14/21 03:05 Labs: Laboratory Results - last 24 hr 09/13/21 09:49: PT 13.6, INR 1.1, APTT > 250.0 H* 09/13/21 12:20: Activated Clotting Time 202 H 09/13/21 13:23: Activated Clotting Time 178 H 09/14/21 03:05: WBC 7.4, RBC 4.01 L, Hgb 12.9, Hct 37.3, MCV 93.0, MCH 32.2 H, MCHC 34.6 D, RDW Std Deviation 45.1 H, RDW Coeff of Jason 13.2, Plt Count 264, MPV 9.8 09/14/21 03:05: Sodium 139, Potassium 3.8, Chloride 109 H, Carbon Dioxide 25.0, Anion Gap 5, BUN 11, Creatinine 0.59, Estim Creat Clear Calc 43.77, Est GFR (MDRD) Af Amer 132, Est GFR (MDRD) Non-Af 109, BUN/Creatinine Ratio 18.7, Glucose 82, Calcium 8.3 L, Total Bilirubin 0.50, AST 64 H, ALT 32, Alkaline Phosphatase 45, Total Protein 6.4, Albumin 3.1 L, Globulin 3.3, Albumin/Globulin Ratio 0.9 Physical Exam Const alert, oriented x3, no apparent distress, average body habitus and healthy appearing General Appearance: cooperative, well kempt and well developed Orientation / Consciousness: awake, oriented to person, oriented to place and oriented to time HEENT normocephalic, head/scalp atraumatic and moist oral mucous membranes Head and Scalp: normocephalic Eyes PERRL, EOMs intact bilaterally and conjunctivae normal Neck nuchal rigidity, supple, no JVD, thyroid normal and no carotid bruits General: trachea midline Resp normal respiratory effort, no retractions, no use of accessory muscles and clear to auscultation bilaterally Auscultation: Negative for rales, rhonchi or wheezes Cardio regular rate, regular rhythm, S1 normal heart sound, S2 normal heart sound, no murmurs, no rub, no gallops and no JVD GI normal to inspection, nondistended, normoactive bowel sounds, soft to palpation, non-tender and non-distended Extremity normal to inspection and no clubbing, cyanosis or edema Skin no rashes or lesions noted, no wounds and skin turgor normal General Skin Exam: no breakdown Neuro oriented x3, CN's II-XII intact bilaterally, no focal motor deficits and no sens ory deficits noted Sensorium / Orientation: awake and alert Speech: speech normal Psych affect normal Assessment & Plan Assessment/Plan (1) ST elevation GA (STEMI): QUALIFIERS: Involved coronary artery: right coronary artery Qualified Code(s): I21.11 - ST elevation (STEMI) myocardial infarction involving right coronary artery PLAN: 1. Acute ST elevation GA involving the inferior wall and anterior wall-status post BRUCE placement right coronary artery, left anterior descending artery-POD #1-patient appears stable for transfer to PCU at this time, she will need an echocardiogram performed tomorrow. She will remain on Brilinta, aspirin, statin, beta-michael, and RIYA inhibitor. #2 occlusive coronary disease right coronary artery and LAD-see above for treatment #3 rheumatoid arthritis-patient is currently on no medications for her rheumatoid arthritis #4 hypokalemia-resolved, labs will continue to be monitored as necessary Charges/Coding Visit Charges Inpatient E&M: 30443 Subs Hosp L2
--- NOTE | 2021-09-14 12:00 | EKG12_ITS ---
Test Reason : POST STEMI Blood Pressure : / mmHG Vent. Rate : 059 BPM Atrial Rate : 059 BPM P-R Int : 160 ms QRS Dur : 084 ms QT Int : 412 ms P-R-T Axes : 057 038 035 degrees QTc Int : 407 ms Sinus bradycardia Nonspecific T wave abnormality Abnormal ECG When compared with ECG of 13-SEP-2021 09:19, MANUAL COMPARISON REQUIRED, DATA IS UNCONFIRMED Confirmed by TYLER MERIDA, CYNTHIA ([id number]), magazine editor VIVI GRAY ([id number]) on 09/16/2021 11:10:59 AM Referred By: Maya Miller Confirmed By:CYNTHIA SCOTT MD
[2021-09-14] MEDS: Lisinopril 2.5 MG Tablet PO (12:37)
[2021-09-14] MEDS: Atorvastatin Calcium 80 MG Tablet PO (21:42)
[2021-09-15] VITALS (7 sets, daily range): BP systolic 92–115; BP diastolic 70–80; PULSE 56–82; RESP 14–18; TEMP 36.6–36.7; O2SAT 97–98
--- NOTE | 2021-09-15 06:59 | PCM.PN.CARD ---
Subjective Subjective The patient was seen and evaluated. Appears to be doing quite well. Objective Data Vital Signs: Vital Signs Temp Pulse Resp BP Pulse Ox 98.0 F 56 L 18 115/70 98 09/15/21 02:30 09/15/21 03:05 09/15/21 02:30 09/15/21 02:30 09/15/21 02:30 Oxygen Flow Rate (L/min) 2 Oxygen Delivery Method Room Air Weight: 137 lb 5.568 oz Body Mass Index (BMI) 26.1 Intake & Output: Intake and Output for Last 24 Hours 09/13/21 09/14/21 09/15/21 23:59 23:59 23:59 Intake Total 2032.5 / 2152.5 1440 / 1440 Output Total 300 / 650 350 / 350 Balance 1732.5 / 1502.5 1090 / 1090 Lab / Micro Data Result Diagrams: 09/14/21 03:05 09/14/21 03:05 Cardiology Labs/Tests Rhythm: EKG: ECHO: Stress Test: Cardiac Cath: PCI: CT Surgery: Holter monitor: EPS: PPM: CXR: Chest CT Scan: Physical Exam Const alert, oriented x3 and no apparent distress General Appearance: cooperative HEENT hearing grossly normal bilaterally Head and Scalp: atraumatic Eyes EOMs intact bilaterally Neck General: normal visual inspection Chest inspection of chest normal and palpation of chest normal Resp normal respiratory effort Auscultation: clear to auscultation bilaterally Cardio regular rate, regular rhythm, S1 normal heart sound and S2 normal heart sound Jugular Venous Distention: JVD GI normal to inspection, nondistended, normoactive bowel sounds Extremity normal capillary refill and no pedal edema Peripheral Pulses: Yes pulses 2+ throughout and femoral pulses present Skin no rashes or lesions noted Neuro oriented x3 and CN's II-XII intact bilaterally Psych Appearance: grossly normal and appropriate Assessment & Plan Assessment/Plan (1) ST elevation MD (STEMI): QUALIFIERS: Involved coronary artery: right coronary artery Qualified Code(s): I21.11 - ST elevation (STEMI) myocardial infarction involving right coronary artery PLAN: Patient is status post ST elevation myocardial infarction involving the inferior wall and likely anterior wall as well. She underwent angioplasty and stenting of the right coronary artery as well as the mid left anterior descending artery this morning she is doing well without any complaints. Would recommend the following: Start cardiac rehabilitation Continue aspirin Continue Brilinta Continue low-dose beta-michael Continue high intensity statin Start low intensity RIYA inhibitor Echocardiogram this a.m. Above discussed with patient. Likely discharge later today for outpatient follow-up
[2021-09-15 08:46] LABS: Cholesterol 196 mg/dL (200); High Density Lipoprotein 87 mg/dL; Triglycerides 75 mg/dL; Very Low Density Lipoprotein 15 mg/dL (5-40)
--- NOTE | 2021-09-15 09:55 | CASEMGMT ---
CARLIN FREEMAN assessment: Face to Face with patient for initial transition planning/care coordination assessment. CARLIN FREEMAN introduced self and role at [facility], pt voices understanding and consents to assessment. Pt is sitting up in chair in no distress on room air. Pt is A/Ox4 and answers all questions appropriately. Care providers, pharmacy, and demographics verified. Presentation: Pt c/o CP at rest radiating to back and down bilat arms Admitting dx: STEMI PCP: Jessica Specialists: pt will f/u with [facility] Preferred [facility]acy: [facility] Insurance: [employer] A/B, A[employer] Prescription Benefit: [employer] D-[employer] Living Will/HPOA: Pt has LW/HPOA and brought them in this visit to be scanned into her file. Only LW is on the chart and pt aware at this time. Pt states her , Manoj Gerard, is HPOA. LNOK: Manoj Gerard, Living Arrangements: Pt lives in 1 story home and states no concerns at home. Pt is independent with ADL's. Transportation: Pt drives self and states no transportation concerns. DME/HHC: Pt states no current DME or need for any DME. Pt states no hx of HHC or SNF in the past. Pt states no concerns with going home at time of discharge. Pt is retired as of 08/07/21. Pt states does not smoke cigarettes. Pt voices no further concerns/needs. CM to follow for any further discharge planning/needs. Advised pt to ask for CM if any further questions/concerns/needs arise, voices understanding. Pt Goal: Home Plan[place] CARLIN FREEMAN
[2021-09-15] MEDS: Metoprolol Tartrate 25 MG Tablet 12.5 MG PO (09:57)
[2021-09-15] MEDS: Tolterodine Tartrate 2 MG CAP.SA PO (09:57)
[2021-09-15] MEDS: TICAGRELOR 90 MG TABLET PO (09:57)
[2021-09-15] MEDS: Aspirin E.C. 81 MG Tablet PO (09:57)
--- NOTE | 2021-09-15 10:00 | EKG12_ITS ---
Test Reason : AM EKG Blood Pressure : / mmHG Vent. Rate : 062 BPM Atrial Rate : 062 BPM P-R Int : 148 ms QRS Dur : 080 ms QT Int : 388 ms P-R-T Axes : 047 018 -31 degrees QTc Int : 393 ms Normal sinus rhythm T wave abnormality, consider inferior ischemia Abnormal ECG When compared with ECG of 13-SEP-2021 09:19, MANUAL COMPARISON REQUIRED, DATA IS UNCONFIRMED Confirmed by TYLER MERIDA, CYNTHIA ([id number]), newspaper editor managing VIVI GRAY ([id number]) on 09/16/2021 10:50:09 AM Referred By: Maya Miller Confirmed By:CYNTHIA SCOTT MD
--- NOTE | 2021-09-15 11:34 | DS.PCM_ITS ---
Providers Date of Admission: 09/13/21 Primary Care Physician: Dr. Bandar Lopez MD Consultations 09/13/21 11:51 Consult: Cardiology Routine Consulting Provider: Maya Miller Reason for Consult: STEMI EMERGENT Consult: Yes MD Notified: Yes Date Notified: 09/13/21 Time Notified: 09:20 Method of Notification: Verbal Method of Consult:: In-Person Reason For Visit: STEMI Diagnosis Discharge Diagnosis (1) ST elevation OR (STEMI): Status: Acute Code(s): I21.3 - ST elevation (STEMI) myocardial infarction of unspecified site Qualifiers: Involved coronary artery: right coronary artery Qualified Code(s): I21.11 - ST elevation (STEMI) myocardial infarction involving right coronary artery Medications at Discharge Home Medications oxybutynin chloride 10 mg PO DAILY 09/13/21 aspirin 81 mg PO BREAKFAST #30 tab 09/15/21 atorvastatin 80 mg PO QHS #30 tab 09/15/21 lisinopril 2.5 mg PO DAILY #30 tab 09/15/21 metoprolol tartrate 12.5 mg PO BID #30 tab 09/15/21 ticagrelor [Brilinta] 90 mg PO BID #60 tab 09/15/21 Hospital Course Operations None Procedures 2-D Echocardiogram and Cardiac catheterization Summary of Care Provided Minutes Spent on Discharge: 40 Hospital Course: Patient is a 66-year-old female with a past medical history as outlined was admitted to the ED on 09/13/2021 with a complaint of chest pain. Chest pain was pressure-like with associated mid back pain the pain radiated down both her arms. EKG done on arrival in the ED showed evidence of acute inferior wall myocardial infarction with reciprocal ST depression in the lateral precordial leads. STEMI alert was called and she was taken emergently to [facility] had PCI with insertion of drug-eluting stent in the RCA and LAD. She was transferred to the ICU afterwards. She was put on aspirin and brilinta as well as high intensity statin. She had 2D echo which showed EF of 60% with normal left ventricular static function and stage I diastolic dysfunction. Patient remained stable and was discharged on 09/15/2021. She was discharged on p.o. aspirin, high intensity statin and metoprolol as well as lisinopril. She is to follow-up with her PCP and follow-up with cardiology in 2 to 4 weeks. Patient seen and examined prior to discharge. She had no active complaints and felt well. Review of systems otherwise negative. Labs and vitals reviewed. Home medication reviewed and reconciled. Physical Exam Const alert and no apparent distress General Appearance: cooperative and comfortable Orientation / Consciousness: awake Exam Limitations: no limitations HEENT normocephalic, head/scalp atraumatic, hearing grossly normal bilaterally and moist oral mucous membranes Eyes PERRL, EOMs intact bilaterally and conjunctivae normal Neck no lymphadenopathy, supple and no JVD Resp normal respiratory effort, no retractions, no use of accessory muscles and clear to auscultation bilaterally Cardio regular rate, regular rhythm, S1 normal heart sound, S2 normal heart sound and no murmurs GI normal to inspection, nondistended, normoactive bowel sounds, soft to palpation, non-tender and non-distended Extremity normal to inspection, full ROM and no clubbing, cyanosis or edema Skin no rashes or lesions noted Neuro oriented x3, CN's II-XII intact bilaterally and moves all extremities Sensorium / Orientation: awake and alert Psych affect normal Weight / BMI Weight Weight: 137 lb 5.568 oz Body Mass Index (BMI) 26.1 ABG / Lab / Microbiology Data Result Diagrams: 09/14/21 03:05 09/14/21 03:05 Laboratory: Laboratory Results - last 24 hr 09/15/21 08:10: Triglycerides 75, Cholesterol 196, LDL Cholesterol 94, VLDL Cholesterol 15, HDL Cholesterol 87 Radiography Diagnostic Testing: Radiology Impression Echocardiogram 09/14/21 09:31 Interpretation Summary Normal LV size. Left ventricular systolic function is normal. The estimated ejection fraction is 60 %. Stage 1 diastolic dysfunction. Mild tricuspid valve insufficiency. Trivial mitral valve insufficiency. ___ Ordering Physician: Enoc Mello Referring Physician: Bandar Lopez Performed By: Dionne Medel, RORY, RVT D/C Instructions Discharge Diet: Low fat / Low cholesterol Discharge Activity: Return to Normal Activity Weight Bearing Status: Weight bearing as tolerated Call your doctor if you observe: Fever of 101 or Higher, Shortness of breath, Swelling in the ankles, Chest pain and Increased palpitations (irregular heartbeat) Meaningful Use Info Meaningful Use Diagnoses (Choose all that apply): AMI AMI/Post PCI/Angioplasty Aspirin given w/in 24hrs of arrival?: Yes ASA at discharge?: Yes Antiplatelet Therapy at Discharge:: Yes Statins at discharge?: Yes Aren/ARB at discharge?: Yes Beta Karla at discharge?: Yes Done w/ Acute OR measure.: Yes Documented LVEF (%): 60 Discharge Plan Admission Admit Date/Time: 09/13/21 09:38 Primary Reason for Your Visit: acute OR Attending Provider: Aviva Decker Primary Care Provider: Bandar Lopez Consulting Providers: Maya Miller Discharge Orders/Prescriptions Prescriptions: New atorvastatin 80 mg Tablet 80 mg PO QHS Qty: 30 RF: 2 aspirin 81 mg Tablet,Delayed Release (Dr/Ec) 81 mg PO BREAKFAST Qty: 30 RF: 2 lisinopril 2.5 mg Tablet 2.5 mg PO DAILY Qty: 30 RF: 2 metoprolol tartrate 25 mg Tablet 12.5 mg PO BID Qty: 30 RF: 2 Brilinta 90 mg Tablet 90 mg PO BID Qty: 60 RF: 2 Continued oxybutynin chloride 10 mg tablet extended release 24hr 10 mg PO DAILY RF: 0 Referrals / Follow Up: Bandar Lopez MD [Primary Care Provider] - Disposition Disposition (needs filled in before D/C Order can be placed): Home, Self Care Charges/Coding Visit Charges Inpatient E&M: 38072 Disch Hosp
--- NOTE | 2021-09-15 12:18 | CASEMGMT ---
Pt to be sent home on Brilinta at discharge and meds e-scribed to [facility]. Call to [facility] and tech provided with pt's [employer] card info as pt has not filled there before. Per tech, pt's co-pay is $444.71 but most is deductible. Pt/ updated and pt provided Brilinta month free trial card, voices understanding. Pt is aware that HPOA not on file and that she can bring to f/u appt with cardiology office, voices understanding. Pt voices no further questions/concerns/needs. Gregg GILLIS CM
== END 2021-09-15 13:21 | disposition home or self-care (01) | DRG 247 ==
LOC: ED 09:47 → ICU 09:52 → PCU 09-15 07:25 → ICU 09-15 10:40
PROVIDERS: Internal Medicine Cardiovascular Disease; Admitting Provider Internal Medicine; Emergency Provider Emergency Medicine; PCP Family Medicine; Referring Provider Specialist; Visit Provider Student in an Organized Health Care Education/Training Program
DX: I21.11 ST elevation (STEMI) myocardial infarction involving right coronary artery (principal); E87.6 Hypokalemia; I21.09 ST elevation (STEMI) myocardial infarction involving other coronary artery of anterior wall; I21.19 ST elevation (STEMI) myocardial infarction involving other coronary artery of inferior wall; M06.9 Rheumatoid arthritis, unspecified; I25.9 Chronic ischemic heart disease, unspecified; I25.10 Atherosclerotic heart disease of native coronary artery without angina pectoris; Z79.02 Long term (current) use of antithrombotics/antiplatelets; Z79.82 Long term (current) use of aspirin
CPT/HCPCS: 71045; 80048; 80053; 80061; 84484; 85025; 85027; 85347; 85610; 85730; 92928; 92941; 93005; 93306; 93458; 99152; 99153; 99284; C1757; C1874; J7030; Q9967; A4216; C1725; C1769; C1887; C1894; C9600; C9606; J1327; J2405

== ENCOUNTER 2021-09-24 08:06 | Outpatient (CLI) | payer MEDICARE, OTHER, SELFPAY ==
--- NOTE | 2021-09-24 08:15 | CR.ITP_ITS ---
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 Maintain the individual as the primary focus of care. 2. To improve the patient's quality of life. 3. Identification of cardiac risk factors and provide cardiac risk factor management. 4. Enhance the psychosocial status of the patient. 5. Reconditioning enough to allow the patient to resume customary activities. 6. Control symptoms of cardiac disease Personal Goals: Initial Assessment: Get back to work, or to resume activities faster, Improve knowledge of cardiac disease Scale for measuring improvement of personal goals: Enter appropriate number in Comments. 2 = Unchanged. 3 = Slightly Better. 4 = Moderate Improvement. 5 = Met my Goal - Diagnosis & Disease Process Outcomes/Goals: Pt IDs own risk factors & lifestyle modifications by Session 10, Verbalizes symptoms of angina & response by session 3., Pt independently manages Plan/Interventions: Assist Pt to ID & engage in lifestyle modification to reduce CVD risk, Instruct on individual risk factors, Review symptoms of angina & emergency actions, Review secondary diagnosis & identify educational needs. - Safety Referral to Physical Therapy: No Referral to [facility] Case Management: No Fall Risk Assessed:: Yes Assistive Devices:: None Exercise - Initial Assessment - Visit Date of Eval: 09/24/21 Session #:: 0 - Pre-cardiac rehab evaluation Mets: Pre-: >7 METS for 30 minutes by discharge - Physician Prescribed Exercise Modalities: Treadmill, Rower, Airdyne Frequency: 3x/week for 12 weeks [36 sessions] Intensity: 60-80% of age predicted maximum heart rate reserve Current METSs:: 4.0 Target Heart Rate:: 100-130 Resting Blood Pressure: 115/70 EKG Type: normal sinus rhythm - Outcomes & Goals Goals:: Verbalizes understanding of THR, RPE & goal METS by session 6, Documents in home exercise log/reports 30 min aerobic 5 day/wk by DC, Demonstrates accurate pulse taking by DC - Intervention & Plan Exercise Program Goals: Instruct on personal THR & RPE, Instruct on MET level & personal MET goal, Show patient to take own pulse /validate performance until accurate, Instruct on home exercise - Physical Activity Home Exercise Physical Activity - Home Exercise: Safe Exercise, Warm-up, Self-monitoring, Cool-Down, Home Exercise > 30 min Daily, Sitting Time <3 hours/daily - Outcomes & Goals Outcomes/Goals: Demonstrates correct Warm-up/exercise Cool-Down (S3) if = 2.5 METs, Verbalizes symptoms of exercise intolerance by Session 3 (S3), Demonstrate safe equipment use (S3) & follows exercise prescrition (6) - Intervention & Plan Plan/Intervention: Instruct warm-up & cool-down if exercising at > 2 METs, Instruct on symptoms of exercise intolerance & actions to take, Instruct & monitor on saf, Assess intial functional capacity & safety risk Nutrition - Initial Assessment - Program Goals Nutrition Program Goals: LDL <100 optimal. 100 - 129 Near optimal. 130 - 159 Borderline High. 160 - 189 High. Total Cholesterol <200 desirable. 200 - 239 Borderline High. >/= 240 High. HDL < 40 Low >/=60 High. Triglycerides <150 desirable. <199 optimal. VlDL 5 - 40. HgbA1C <7%. BMI <25 Patient has diagnosis of Hyperlipidemia (ICD E78)?: No - Visit Date of Assessment:: 09/24/21 Session #:: 0 - pre-cardiac rehab evaluation - Cholesterol/Lipids Triglycerides (mg/dL): 75 - 09/14/2021 Total Cholesterol (mg/dL): 196 LDL Cholesterol (mg/dL): 94 HDL Cholesterol (mg/dL): 87 Determine presence & major risk factors that modify LDL goal: Age men > 45 years; women >/= 55 years Outcomes/Goals: Pt IDs own risk factors & lifestyle modifications by Session 10, Verbalizes symptoms of angina & response by session 3., Pt independently manages Intervention/Plan: Instruct on personal lipid levels & lipid goals/NCEP guidelines, Instruct on cholesterol Referral to dietitian:: Yes - Medical Nutrition Therapy (Keto & Fasting diets in the past) - Diabetes (Other Core Measures) Diabetes Type: Not Applicable - Weight Mgt (Other Care) Height: 5 ft 2 in Weight:: 137 lb BMI: 25.0 Diagnosis Overweight/Obesity BMI> 30% ICD-10 E66: No Diagnosis High BMI/Morbid Obesity BMI> 35% ICD-10 Z68: No Outcomes/Goals: Pt sets, maintains & shows weight loss goal & trend during rehab Intervention/Plan: Instruct on ideal BMI & set weight loss goal w/patient - Healthy Eating Habits Outcomes/Goals:: Consume diet rich in vegs,fruits,whole grain/high fiber,fish,lean meat, Limit sat/trans fats,cholesterol & added salts & sugars Intervention/Plan:: Assess current eating habits - Education Gave educational materials for:: Healthy eating Nutrition - 30-Day Assessment Nutrition - 60-Day Assessment Nutrition - 90-Day Assessment Nutrition - Final Assessment Medical - Initial Assessment - Visit Date of Eval: 09/24/21 Session #:: 0 - Pre-cardiac rehab evaluation - Medication Compliance Preventative Medication(s):: Aspirin, Ticagrelor/P2Y12 inhibitor, Statin/lipid, Beta michael H/O mental health issues: depression, anxiety, or addiction?: No Doesn?t believe in the benefits of treatment?: No Believes medications are unnecessary or harmful?: No Has a concern about medication side effects?: No Expresses concern over the cost of medications?: No Outcomes/Goals: Verbalizes medications,desired effect & common side effects @ DC, Pt self-reports following medication regimen, Keeps card in wallet w/medications listed by DC Interventions/plans: Instruct on medication effects & side effects, Review medication list w/patient every two weeks, Instruct importance of taking meds as ordered & assist problem solving - Tobacco Use Tobacco Use: Non-smoker - Hypertension Resting Blood Pressure:: 115/70 [place] [employer] Hypertension Guidelines: [place] [employer] Hypertension Guidelines. Normal BP Less than 120/80. Elevated BP 120/80. Hypertension Stage 1: BP 130-139/80-89. Hypertesnion Stage 2: BP 140 or higher/90 or higher. Hypertension Crisis: BP higher than 180/120 Outcomes/Goals: Able to verbalize/achieve optimal blood pressure <130/80, Incorporates diet changes & exercise for blood pressure control by DC Interventions/plan: Instruct on optimal blood pressure, hypertension & medications, Instruct on effects of sodium, alcohol, stress, exercise &hypertension - Tobacco Cessation Referral Smoking Cessation Referral:: No Individual Education/Counseling:: No Education Schedule Given:: Yes - Online access to educatoin & training aslo printed education booklet Medical- 30-Day Assessment Medical- 60-Day Assessment Medical- 90-Day Assessment Medical - Final Assessment Psychosocial - Initial Assess - VIsit Date of Eval: 09/24/21 Session #:: 0 - pre-cardiac rehab evaluation Not Applicable: Yes History of previous Mental disease:: No - Psychosocial Test Tool Used:: Ortega Alvarado QOL Cardiac, PHQ-9 Questionnaire phq-9 Severity: Severity. 1-4 Minimal Depression. 5-9 Mild Depression. 10-14 Moderate Depression. 15-19 Moderately Sever Depression. 20-27 Severe Depression. Rule: - Referral to Behavioral Health PS - Interventions: Yes Attend Stress Management Classes, No Referral to Behavioral Health if PHQ-9 score >9:, No Referral to [facility], No Referral to Physician if PHQ-9 if score is 5-9: - Outcomes/Goals: See list Psychosocial Outcomes/Goals:: ID's personal stressors & 2 strategies to manage stress by discharge - Intervention/Plan: See List Interventions/Plan:: Assess stressors,coping strategies & signs of derpression on admission, Instruct/assist pt to develop coping & personal stress Mgt strategies, Instruct patient to recognize signs & symptoms of depression, Instruct patient to recog Psychosocial - 30-Day Assess Psychosocial - 60-Day Assess Psychosocial - 90-Day Assess Psychosocial - Final Assessmen Patient Health Questionnaire Initial Assessment 1. Little interest or pleasure in doing things: Not at all 2. Feeling down, depressed, or hopeless: Not at all 3. Trouble falling or staying asleep, or sleeping too much: Not at all 5. Poor appetite or overeating: Not at all 6. Feeling bad about yourself -- or that you are a failure or have let yourself or your family down: Not at all 7. Trouble concentrating on things, such as reading the newspaper or watching television: Several days 8. Moving or speaking so slowly that other people could have noticed. Or the opposite - being so fidgety or restless that you have been moving around a lot more than usual: Not at all 9. Thoughts that you would be better off , or of hurting yourself in some way: Not at all How difficult have these problems made it for you to do your work, take care of things at home, or get along with other people?: Not difficult at all Total Score: 1 PAYAL-Q SV Test - Statements CAD is a disease of the arteries in the heart: False Examples of risk factors for heart disease: True Angina is chest pain or discomfort: I Don't Know The benefits of resistance training include: True Eating more meat and dairy products: False Anti-platelet medications such as aspirin are important: True The only effective way to manage stress: False An exercise warm-up slowly increases heart rate: I Don't Know Prepared, processed foods usually have high sodium: True Depression is common after a heart attack: True The statin medications lower cholesterol: True To control blood pressure, lower the amount of sodium: True If someone gets chest discomfort during walking: False Transfats are partially hydrogenated vegetable oils: I Don't Know Sleep apnea that is not treated increases the risk: I Don't Know To control cholesterol, one should become a vegetarian: False Someone knows if he/she is exercising at the right level: True Diabetes cannot be prevented with exercise & health eating: False Stress is a large risk for heart attack: True A diet that can help lower blood pressure is rich in: True - Total Score Total Correct Responses: 16 Self-Efficacy Initial Assessment We would like to know how confident you are in doing certain activities. Please select your confidence level for:: Select your confidence level for the following using the scale 1-10 where 1 is not at all confident and 10 is totally confident. Your score is the average of all 6 responses. Fatigue: How confident are you that you can keep the fatigue caused by your disease from interfering with the things you want to do? Select Number: 10 Physical Discomfort or Pain: How confident are you that you can keep the physical discomfort or pain of your disease from interfering with the things you want to do? Select Number: 9 Emotional Distress: How confident are you that you can keep the emotional distr ess caused by your disease from interfering with the things you want to do? Select Number: 10 Other Symptoms or Health Problems: How confident are you that you can keep other symptoms or health problems from interfering with the things you want to do? Select Number: 8 Different Tasks and Activities: How confident are you that you can do the different tasks and activities needed to manage your health condition so as to reduce your need to see a doctor? Select Number: 10 Medication: How confident are you that you can do things other than just taking medication to reduce how much your illness affects your everyday life? Select Number: 10 Total Score:: 9 Nutrition Survey - Nutrition Survey Initial Have you lost >10 lbs over the past 2 months without trying?: No Are you following a special diet at home for diabetes, low fat, or low salt?: No Are you interested in meeting with a dietitian for help understanding your diet?: Yes Do you eat less than 3 meals a day?: Yes Do you eat fatty meats (alicia, sausage, ribs, etc), fried foods, desserts, large amounts of salad dressings, margarine, butter, or cheese most days?: No Do you have food allergies? [Enter types in comment field]: No Do you eat in restaurants more than 3 times a week?: No Do you season food with salt, seasoning salt, or garlic salt?: Yes Do you used canned, boxed, frozen meals, or soups, seasoning packets?: No Total Score:: 3
--- NOTE | 2021-09-24 08:15 | PCM.CR.HP2 ---
CR - History & Physical - General Arrival date:: 09/24/21 Arrival time:: 08:15 Date of Referral:: 09/15/21 Date of CR Evaluation:: 09/24/21 Referring Physician: Dr. Perez Multani Primary Diagnosis: STEMI, PCI w/coronary stenting - History of Present Cardiac Event Onset Date: Enter Onset Date of cardiac illnesses in Comment field below Acute Myocardial Infarction within 12 months:: Yes - 09/13/2021 PTCA or coronary stenting:: Yes - 09/13/2021 Type of Symptoms:: Gotten up early around 5:15am, had my normal morning coffee, bathed, makeup etc, sat down to read novel and developed the chest pain. Presented to Emergency room by private vehicle with chest pain that started 1-hour prior. Paing radiated to her back and arms, lightheadedness and nauseated. No previous history of any primary issues or heart disease. Kept putting off for about a good hour before coming to the emergency room, in the back of my mind I knew what was happening but wouldn't admit it. I'm very stubborn!! Were there any complications?: none - Sleep Disorder Evaluation Hx of Sleep Apnea: No Do you snore loudly (louder than talking or can be heard through closed doors)?: No Do you often feel tired/ fatigued/ sleepy during daytime?: Yes - Not related or from sleeping, but have Rheumatoid arthritis and weakness/ loss of energy. Has anyone observed you stop breathing during sleep?: No History of Hypertension (for STOP score): No STOP Results: Negative - Medications Home Medications: Ambulatory Orders Medication Instructions Recorded oxybutynin chloride 10 mg PO DAILY 09/13/21 aspirin 81 mg PO BREAKFAST #30 tab 09/15/21 atorvastatin 80 mg PO QHS #30 tab 09/15/21 lisinopril 2.5 mg PO DAILY #30 tab 09/15/21 metoprolol tartrate 12.5 mg PO BID #30 tab 09/15/21 ticagrelor [Brilinta] 90 mg PO BID #60 tab 09/15/21 - Allergies Allergies/Adverse Reactions: Allergies No Known Allergies Allergy (Verified 09/13/21 09:13) Advanced Directives - Advanced Directives Power of Scale Clerk: Yes Living Will: Yes Advance Directives Information Provided: No Advance Directives on File: Yes - Josh is not and is bringing it it when she sees Dr. Multani DNR Order?:: No - MOLST See MOLST form: No Past Medical History - Covid-19 Screening Fever: No Unexplained muscle aches: No Current respiratory symptoms: No Upper respiratory infections symptoms: No Gastro-intestinal symptoms: No Jnd-Lvzw-[id number] symptoms: No Date of testin10/07/20 - have had all three because of immunity issues Has High Risk Exposures ID'd by Health dept/Inf Control team: No 65 years or older:: Yes Lives in Assisted Living facility:: No Has a chronic lung disease or moderate to severe asthma:: No Has a serious heart condition:: No Immunocompromised:: Yes Severely obese (Body Mass Index of 40 or higher):: No Diabetic:: No Has chronic kidney disease undergoing dialysis:: No - Past Medical Illness Medical History: Past Medical History (Last Updated 09/24/21 @ 08:48 by Dante Turner, ACID PUMP OPERATOR, MAINTENANCE ASSISTANT, BS) Atherosclerotic heart disease of [place] coronary artery without angina pectoris I25.10 Chest pain, unspecified R07.9 Degenerative joint disease of spine M47.9 Rheumatoid arthritis M06.9 Rheumatoid arthritis of cervical spine M45.2 - Past Surgical History Surgical History: Past Surgical History (Last Updated 09/15/21 @ 08:13 by Emelina Crisostomo) History of coronary artery stent placement Onset Date: 09/13/21 Z95.5 PCI-BRUCE-Mid RCA w/ 3.5 x 13 mm Podaddies MR Stent and Mid LAD w/ 2.25 x 38 mm Rollbase (acquired by [employer]) [place] MR Stent 09/13/2021 Hx of section Z98.891 Hx of cholecystectomy Z90.49 Social History - Smoking History Smoking Status: Never smoker Hx Tobacco Use: No Hx Smoking Exposure: No - Occupation Occupation (List type of work in comments):: Retired - Just retired 6 weeks ago! - Hobbies, Recreation, Social Activities Hobbies: Hiking, Walking - 2 miles daily, Exercise - Treadmill at home uses daily Recreational Activities: I am able to engage in a few activities Social Environment - Status Marital Status: - Current Living Arrangements Living Environment:: Spouse - Children How many children do you have?: 3 - 5 grandchildren; all are healthy Do any of your children live nearby?: Yes - Safety Do you feel safe in your surroundings?: Yes - Assistance Do you need any assistance at home?: No, however my children believe I do! Review of Systems - Review of Systems Hints: Right click = Denies (Slash). Left click = Reports ([place]) Review of Present Symptoms: Reports: Angina - still having some residual chest pain, and some pain in my back which is concerning. I really don't know if it realated to the heart, or if it is a result of my rheumatoid arthritis. Afraid.. Denies: Shortness of Breath at Rest, Shortness of Breath with Exertion - Pain Is Patient Pain Free?: Yes Pain Location: chest - minor not bad but enough to know it is there., back Pain Level: 08/18 Risk Factor Assessment - Chief Complaint Chief Complaint: 66 female who presents to cardiac rehab today following recent STEMI and PCI intervention w/coroanry stenting. Patient has reserved EF. - Vital Signs Temperature: 98.3 F Respiratory Rate: 14 Pulse Ox: 98 Blood Pressure: 115/70 - Pulse Pulse Rate: 56 - low Pulse Rhythm: Regular - Hypertension Blood Pressure Sitting - Left Arm: 115/70 - Blood Cholesterol/Lipids Total Cholesterol (mg/dL) Goal = less than 200 mg/dL: 196 - 09/14/2021 HDL Cholesterol (mg/dL) Goal = less than 40 mg/dL: 87 LDL Cholesterol (mg/dL) Goal = less than 70 mg/dL: 94 Triglycerides (mg/dL) Goal = less than 150 mg/dL: 75 - Obesity Height: 5 ft 2 in Weight:: 137 lb Weight in Pounds: 137.0 lbs Weight Source: Stated by Patient Body Mass Index (BMI): 25.0 Nutritional Referral for Obesity: No - Physical Inactivity Physical Inactivity: Reg Exercise 30 min/day - walks 2 miles daily, also does treadmill at home at 3.2 MPH, Physically demanding job - before retired did over 10,000 steps per day., Recreational activity Motivation - Motivation to Participate On a scale of 1 to 10, how prepared are you to commit to attending program?: 10 What do you see as barriers to successfully being able to complete the program?: none What do you see as the benefits of succesfully completing the program? In other words, what do you hope to get out of participating in the program?: getting back to normal living, on board to get heatlhier! Are there issues you are dealing with that will interfere with completing the program?: rheumatoid arthritis Do you have a spouse or signficant other, family or friends who will help support you to complete the program?: absolutely
[2021-09-24 09:01] VITALS: BP 115/70; PULSE 56; RESP 14; TEMP 36.8; O2SAT 98; BMI 25.0
[2021-09-24 09:45] VITALS: BP 115/70; BMI 25.0
== END 2021-09-24 23:59 | disposition home or self-care (01) ==
LOC: CR 08:09
PROVIDERS: PCP Family Medicine; Referring Provider Internal Medicine Cardiovascular Disease; Visit Provider Internal Medicine Cardiovascular Disease
DX: I25.10 Atherosclerotic heart disease of native coronary artery without angina pectoris (principal); Z95.5 Presence of coronary angioplasty implant and graft; I25.2 Old myocardial infarction

== ENCOUNTER 2021-09-26 09:52 | Outpatient (RCR) | payer MEDICARE, OTHER, SELFPAY | END 2021-10-06 23:59 | disposition home or self-care (01) | LOC: CR 09:52 | PROVIDERS: PCP Family Medicine; Referring Provider Internal Medicine Cardiovascular Disease; Visit Provider Internal Medicine Cardiovascular Disease | DX: I25.10 Atherosclerotic heart disease of native coronary artery without angina pectoris (principal); I21.11 ST elevation (STEMI) myocardial infarction involving right coronary artery; Z95.5 Presence of coronary angioplasty implant and graft | CPT/HCPCS: 93798 ==

== ENCOUNTER 2021-10-03 22:13 | Emergency (ER) | payer MEDICARE, OTHER, SELFPAY ==
[2021-10-03 22:13] VITALS: BP 150/99; PULSE 64; RESP 16; TEMP 36.2; O2SAT 100; BMI 26.2
--- NOTE | 2021-10-03 22:17 | EKG12_ITS ---
Test Reason : PALPS Blood Pressure : / mmHG Vent. Rate : 062 BPM Atrial Rate : 062 BPM P-R Int : 152 ms QRS Dur : 074 ms QT Int : 398 ms P-R-T Axes : 061 020 022 degrees QTc Int : 403 ms Normal sinus rhythm Normal ECG Confirmed by TYLER MERIDA, CYNTHIA ([id number]), clinical editor VIVI GRAY ([id number]) on 10/06/2021 12:16:45 PM Referred By: PL Confirmed By:CYNTHIA SCOTT MD
--- NOTE | 2021-10-03 22:23 | RAD_ITS ---
STUDY: X-RAY CHEST REASON FOR EXAM: Female, 66 years old. Chest pain TECHNIQUE: Single AP portable view of the chest. COMPARISON: 09/13/2021 FINDINGS: The lungs are clear and expanded. There is no demonstrated pleural abnormality. Normal size heart. Coronary stent. Normal mediastinum and qiana. Normal visualized pulmonary arteries. Normal visualized aortic arch and descending thoracic aorta. There is no demonstrated abnormality of the visualized soft tissue structures of the upper abdomen. RAD/Chest 1 View (Portable) IMPRESSION: No acute abnormal cardiopulmonary finding. Electronically Signed: Lukas Moreno MD at 22:48 EST ,
[2021-10-03 22:35] VITALS: BP 142/77; PULSE 56; RESP 17; O2SAT 99
[2021-10-03 23:13] VITALS: BP 118/68; PULSE 58; RESP 13; O2SAT 97
[2021-10-03 23:16] LABS: Absolute Lymphocyte Count 4.29 X10^3/uL (0.83-4.51); Absolute Neutrophil Count 2.2 X10^3/uL (2.0-7.7); Basophil# 0.13 X10^3/uL; Basophil% 1.8 % (0-1); Eosinophil# 0.15 X10^3/uL; Hematocrit 40.3 % (37-47); Lymphocyte # 4.29 X10^3/ul (0.83-4.51); Lymphocyte % 58.1 % (19-41); Mean Corp Hgb Conc 34.7 g/dL (32-36); Mean Platelet Vol. 9.8 fl (6.2-12.0); Monocyte# 0.61 X10^3/uL; Monocyte% 8.3 % (0-10); NRBC Flagged by Analyzer 0 % (0-5); Neutrophil # 2.15 X10^3/uL (2.7-7.7); Neutrophil % 29.1 % (47-70); Platelet Count 328 K/mm3 (150-450); RBC Distribution Width CV 12.9 % (11.6-14.6); RBC Distribution Width SD 43.1 fl (35.1-43.9); Red Blood Count 4.38 M/mm3 (4.2-5.4); White Blood Count 7.4 K/mm3 (4.4-11.0)
--- NOTE | 2021-10-03 23:38 | EDS_ITS ---
HPI History of Present Illness Chief Complaint: Palpitations Informant: patient Narrative Narrative: Patient is a 66-year-old female with recent FL and placement of 2 stents, 3 weeks ago at [facility], presenting with sudden onset of palpitations and mild shortness of breath. Patient states this occurred around 7 PM tonight. She was just sitting watching TV at the time. She denies any associated chest pain. She states this feels different than when she had her heart attack. She states she has been compliant with all of her new medications including metoprolol, Brilinta, 81 mg aspirin and atorvastatin. She denies any swelling of her legs. She denies any history of DVT or PE. She notes since her discharge from the hospital she is just not had much energy. No other complaints at this time. [facility] Medical History (Updated 10/04/21 @ 02:[address] 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 Fibromyalgia History of ST elevation myocardial infarction (STEMI) (09/13/21) Hx of Sjogren's disease Rheumatoid arthritis Rheumatoid arthritis of cervical spine Home Medications oxybutynin chloride 10 mg PO DAILY 09/13/21 [History Last Taken 10/03/21] aspirin 81 mg PO BREAKFAST #30 tab 09/15/21 [Rx Last Taken 10/03/21] atorvastatin 80 mg PO QHS #30 tab 09/15/21 [Rx Last Taken 10/02/21] lisinopril 2.5 mg PO DAILY #30 tab 09/15/21 [Rx Last Taken 10/03/21] ticagrelor [Brilinta] 90 mg PO BID #60 tab 09/15/21 [Rx Last Taken 10/03/21] etanercept [Enbrel] 50 mg SUBCUT QWEEK 10/03/21 [History Last Taken Unknown] folic acid 1 mg PO BID 10/03/21 [History Last Taken 10/03/21] gabapentin 300 mg PO TID 10/03/21 [History Last Taken 10/03/21] methotrexate sodium 15 mg PO QWEEK 10/03/21 [History Last Taken Unknown] metoprolol tartrate 25 mg tablet 12.5 mg PO BID tab 10/03/21 [History Last Taken 10/03/21] Allergy/AdvReac Type Severity Reaction Status Date / Time No Known Allergies Allergy Verified 10/03/21 22:15 Surgical History (Updated 09/15/21 @ 08:13 by Emelina Crisostomo) History of coronary artery stent placement (09/13/21) Hx of section Hx of cholecystectomy Social History Smoking Status: Never smoker ROS ROS ED Constitutional Constitutional ED: Reports other Details: Fatigue ; Denies chills or fever(s) Eyes Eyes: Denies change in vision ENT ENT ED: Denies sore throat Cardiovascular Cardiovascular: Reports palpitations; Denies chest pain Respiratory/Chest Respiratory/Chest: Reports dyspnea; Denies cough or dyspnea on exertion Gastrointestinal Gastrointestinal: Reports nausea; Denies abdominal pain, diarrhea or vomiting Musculoskeletal Musculoskeletal: Denies arthralgias or myalgias Integumentary Denies rash Neurologic Neurologic: Denies headache(s), paresthesias or weakness Psychiatric Psychiatric: Denies depression EXAM Physical Exam Const Vital Signs: 10/03/21 22:13 10/03/21 22:35 10/03/21 22:39 Temperature 97.1 F L Temperature Source Temporal Pulse Rate 64 56 L Respiratory Rate 16 17 Respiratory Effort Normal Non-Labored Respiratory Pattern Normal Blood Pressure 150/99 H 142/77 H Blood Pressure Mean 116 98 Pulse Ox 100 99 Oxygen Delivery Method Room Air Room Air 10/03/21 23:13 10/04/21 00:00 10/04/21 01:00 Temperature Temperature Source Pulse Rate 58 L 56 L 59 L Respiratory Rate 13 14 15 Respiratory Effort Respiratory Pattern Blood Pressure 118/68 104/72 137/69 H Blood Pressure Mean 84 82 91 Pulse Ox 97 96 95 Oxygen Delivery Method Room Air Room Air Room Air 10/04/21 02:00 10/04/21 02:41 Temperature Temperature Source Pulse Rate 54 L 54 L Respiratory Rate 17 18 Respiratory Effort Respiratory Pattern Blood Pressure 124/75 H 124/70 H Blood Pressure Mean 91 Pulse Ox 100 99 Oxygen Delivery Method Room Air Positive well nourished and well developed General Appearance ED: well developed and NAD HEENT Reports moist mucous membranes Negative for tenderness Eyes PERRL and EOMs intact bilaterally Neck supple and no JVD Chest Wall inspection of chest normal Resp normal respiratory effort and clear to auscultation bilaterally Cardio regular rate, regular rhythm and no murmurs GI normal to inspection, nondistended, normoactive bowel sounds and non-tender Palpation: soft Extremity normal to inspection General Extremety ED: Negative for edema or tenderness General Extremity: Negative for edema Neuro oriented x3 Sensorium / Orientation: alert Motor Exam: Negative for general weakness Psych mental status grossly normal Skin no rashes or lesions noted and no wounds MDM MDM MDM Narrative Medical decision making narrative: Patient evaluated for sudden onset of intermittent palpitations. Patient has occasional PVCs on telemetry and this correlates with her sensation of palpitation. EKG shows normal sinus rhythm with PVC. Her high sensitive troponin is normal x2. D-dimer is elevated and CT is obtained. This does not show an acute process. Her TSH is only mildly elevated at 4.84 and I do not think this explains her presentation. I attempted to order Holter monitor for patient however we do not have any supply available to get 1 tonight. Patient does have a follow-up appointment with her instrument technician on . At this time I do not think she requires further admission and observation. Patient is agreeable this plan of care. Patient is discharged home. She is encouraged to keep her follow-up appointment on . She can discuss Holter monitor at that time. Patient counseled on return precautions. She verbalized agreement and understanding with this plan. Lab Data Attestation: I reviewed the patient's lab results. Labs: Laboratory Results - last 24 hr 10/03/21 10/03/21 10/03/21 22:35 22:35 22:35 WBC 7.4 RBC 4.38 Hgb 14.0 Hct 40.3 MCV 92.0 MCH 32.0 MCHC 34.7 RDW Std Deviation 43.1 RDW Coeff of Jason 12.9 Plt Count 328 MPV 9.8 Immature Gran % (Auto) 0.700 Neut % (Auto) 29.1 L Lymph % (Auto) 58.1 H [place] % (Auto) 8.3 Eos % (Auto) 2.0 Baso % (Auto) 1.8 H Absolute Neuts (auto) 2.2 Absolute Lymphs (auto) 4.29 Nucleated RBC % 0 D-Dimer Quant (PE/DVT) 2.60 H* Sodium 137 Potassium 3.8 Chloride 106 Carbon Dioxide 27.0 Anion Gap 4 L BUN 15 Creatinine 0.93 Estim Creat Clear Calc 47.06 Est GFR (MDRD) Af Amer 78 Est GFR (MDRD) Non-Af 64 BUN/Creatinine Ratio 16.2 Glucose 106 Calcium 9.2 Troponin I High Sens 9 TSH 10/03/21 10/04/21 22:35 00:10 WBC RBC Hgb Hct MCV MCH MCHC RDW Std Deviation RDW Coeff of Jason Plt Count MPV Immature Gran % (Auto) Neut % (Auto) Lymph % (Auto) [place] % (Auto) Eos % (Auto) Baso % (Auto) Absolute Neuts (auto) Absolute Lymphs (auto) Nucleated RBC % D-Dimer Quant (PE/DVT) Sodium Potassium Chloride Carbon Dioxide Anion Gap BUN Creatinine Estim Creat Clear Calc Est GFR (MDRD) Af Amer Est GFR (MDRD) Non-Af BUN/Creatinine Ratio Glucose Calcium Troponin I High Sens 8 TSH 4.84 H Radiography Chest X-Ray - ED: 1 View, Read by ED Physician, Read by Radiologist and No Acute Disease Diagnostic Testing: Clinical Impression(s) from Imaging Studies Chest X-Ray 10/03/21 22:23 IMPRESSION: No acute abnormal cardiopulmonary finding. Electronically Signed: Lukas Moreno MD at 22:48 EST , Chest CTA 10/04/21 00:38 IMPRESSION: Negative CTA chest examination, without a demonstrated pulmonary embolism or arterial dissection. No focal lung consolidative changes. Electronically Signed: Burton Bianchi MD at 1:24 EST , Rhythm Strip Rhythm Strip: Sinus Rhythm Rate: 62 Ectopy: None EKG Initial EKG: Attestation: I personally reviewed and interpreted this EKG as follows: Interpretation: Sinus Rhythm Comments: Normal sinus rhythm at a rate of 62 Normal axis Normal intervals Normal ST segments Discharge Plan Triage Chief Complaint: Palpitations ED Provider: Paula Farias Dx/Rx/DC Orders Clinical Impression: Heart palpitations, Symptomatic PVCs Instructions: ED Palpitations Prescriptions: No Action oxybutynin chloride 10 mg tablet extended release 24hr 10 mg PO DAILY RF: 0 atorvastatin 80 mg Tablet 80 mg PO QHS Qty: 30 RF: 2 aspirin 81 mg Tablet,Delayed Release (Dr/Ec) 81 mg PO BREAKFAST Qty: 30 RF: 2 lisinopril 2.5 mg Tablet 2.5 mg PO DAILY Qty: 30 RF: 2 Brilinta 90 mg Tablet 90 mg PO BID Qty: 60 RF: 2 gabapentin 300 mg Capsule 300 mg PO TID RF: 0 folic acid 1 mg Tablet 1 mg PO BID RF: 0 Enbrel 50 mg/mL (1 mL) Syringe 50 mg SUBCUT QWEEK RF: 0 methotrexate sodium 2.5 mg tablet 15 mg PO QWEEK RF: 0 metoprolol tartrate 25 mg tablet 12.5 mg PO BID RF: 0 Primary Care Provider: Bandar Lopez Referrals: Bandar Lopez MD [Primary Care Provider] - Activity Restrictions/Additional Instructions: We do not have any Holter monitors available tonight. Please follow-up with your instrument technician this week as scheduled and discuss obtaining a Holter monitor at that time. Your work-up here was normal and I do think you are safe to go home. I suspect you have PVCs that are causing your symptoms. Disposition Disposition: Home, Self Care Discharge Date/Time: 10/04/21 02:42
[2021-10-03 23:50] LABS: Anion Gap 4 (5-15); BUN 15 mg/dL (7-18); BUN/Creat Ratio 16.2 RATIO (10-20); Calcium,Total 9.2 mg/dL (8.5-10.1); Chloride 106 mmol/L (98-107); Creatinine, Serum 0.93 mg/dL (0.55-1.02); EST Glomerular Filtration Rate 64 mL/min (>60); Est Glom Filt Rate - Afr Amer 78 mL/min (>60); Estimated Creatinine Clearance 47.06 ml/min; Glucose 106 mg/dL (74-106); Potassium 3.8 mmol/L (3.5-5.1); Sodium Level 137 mmol/L (136-145); Troponin-I HS 9 pg/mL (3.0-54.0)
[2021-10-04] VITALS: BP 104/72; PULSE 56; RESP 14; O2SAT 96
[2021-10-04 00:25] LABS: Thyroid Stim Hormone (TSH) 4.84 uIU/mL (0.358-3.74)
--- NOTE | 2021-10-04 00:38 | CT_ITS ---
STUDY: CTA CHEST REASON FOR EXAM: Female, 66 years old. Palpitations, suspect PE RADIATION DOSAGE (If Supplied By Facility): CTDIvol = ( 13.18 ) mGy, DLP = ( 457.01 ) mGycm TECHNIQUE: The examination was performed with the intravenous administration of IV 75mL [id number]-370. Post-processing of the angiographic images was performed, with multiplanar reformation and 3D reconstruction. Individualized dose optimization techniques were used for this CT. COMPARISON: None. FINDINGS: Normal enhancement of the main pulmonary artery and right and left pulmonary arteries. Normal enhancement of the bilateral peripheral pulmonary arteries. There is no demonstrated pulmonary embolism. Normal thoracic aorta and visualized great vessels. There is no demonstrated aortic dissection. There are calcifications of the coronary arteries. Normal mediastinum. Normal hilar regions. Normal visualized trachea and bronchi. The lungs are well expanded. Normal pulmonary parenchyma. Normal pleura. Normal chest wall structures. There are degenerative changes of thoracic spine. Normal visualized upper abdomen. There is a right hepatic lobe cyst. CT/CTA Chest W/WO Contrast IMPRESSION: Negative CTA chest examination, without a demonstrated pulmonary embolism or arterial dissection. No focal lung consolidative changes. Electronically Signed: Burton Bianchi MD at 1:24 EST ,
[2021-10-04 00:48] LABS: Troponin-I HS 8 pg/mL (3.0-54.0)
[2021-10-04 01:00] VITALS: BP 137/69; PULSE 59; RESP 15; O2SAT 95
[2021-10-04 02:00] VITALS: BP 124/75; PULSE 54; RESP 17; O2SAT 100
[2021-10-04 02:41] VITALS: BP 124/70; PULSE 54; RESP 18; O2SAT 99
== END 2021-10-04 02:42 | disposition home or self-care (01) ==
PROVIDERS: Emergency Provider Emergency Medicine; PCP Family Medicine; Visit Provider Emergency Medicine
DX: R00.2 Palpitations (principal); M06.9 Rheumatoid arthritis, unspecified; I49.3 Ventricular premature depolarization; I25.10 Atherosclerotic heart disease of native coronary artery without angina pectoris; R06.02 Shortness of breath; M79.7 Fibromyalgia; I25.2 Old myocardial infarction
CPT/HCPCS: 71045; 71275; 80048; 84443; 84484; 85025; 85379; 93005; 99284; Q9967; A4216

== ENCOUNTER 2021-11-05 13:00 | Outpatient (RCR) | payer MEDICARE, OTHER, SELFPAY ==
--- NOTE | 2021-10-20 13:48 | CR.ITP_ITS ---
Diagnosis Exercise - 30-day Assessment - Visit Date of Eval: 10/20/21 Session #:: 7 - Physician Prescribed Exercise Modalities: Treadmill, NuStep, SciFit Frequency: 3x/week for 12 weeks [36 sessions] Intensity: 60-80% of age predicted maximum heart rate reserve Current METSs:: 5 Target Heart Rate:: 100-130 Current RPE:: 11-13 Maximum Excercise HR:: 114 Resting Blood Pressure: 104/66 Maximum Exercise Blood Pressure: 164/90 EKG Type: NSR to ST - Outcomes & Goals Goals:: Verbalizes understanding of THR, RPE & goal METS by session 6, Documents in home exercise log/reports 30 min aerobic 5 day/wk by DC, Demonstrates accurate pulse taking by DC, Other additional outcome/goals: see below - Intervention & Plan Exercise Program Goals: Instruct on personal THR & RPE, Instruct on MET level & personal MET goal, Show patient to take own pulse /validate performance until accurate, Instruct on home exercise, Other additional plan/int - 30-day Reassessments 30 day Reassessments:: Progressing - Physical Activity Home Exercise Physical Activity - Home Exercise: Safe Exercise, Warm-up, Self-monitoring, Cool-Down, Home Exercise > 30 min Daily, Sitting Time <3 hours/daily - Outcomes & Goals Outcomes/Goals: Demonstrates correct Warm-up/exercise Cool-Down (S3) if = 2.5 METs, Verbalizes symptoms of exercise intolerance by Session 3 (S3), Demonstrate safe equipment use (S3) & follows exercise prescrition (6), Other: See below - Intervention & Plan Plan/Intervention: Instruct warm-up & cool-down if exercising at > 2 METs, Instruct on symptoms of exercise intolerance & actions to take, Instruct & monitor on saf, Assess intial functional capacity & safety risk, Other See below Nutrition - Initial Assessment Nutrition - 30-Day Assessment - Program Goals Nutrition Program Goals: LDL <100 optimal. 100 - 129 Near optimal. 130 - 159 Borderline High. 160 - 189 High. Total Cholesterol <200 desirable. 200 - 239 Borderline High. >/= 240 High. HDL < 40 Low >/=60 High. Triglycerides <150 desirable. <199 optimal. VlDL 5 - 40. HgbA1C <7%. BMI <25 Patient has diagnosis of Hyperlipidemia (ICD E78)?: No - Visit Date of Assessment:: 10/20/21 Session #:: 7 - Cholesterol/Lipids Determine presence & major risk factors that modify LDL goal: Hypertension or hypertensive medication, Low HDL cholesterol <40 mg/dL*, Family history of premature CHD in Male < 55 years: female <65 yearsFa, Age men > 45 years; women >/= 55 years Outcomes/Goals: Pt IDs own risk factors & lifestyle modifications by Session 10, Verbalizes symptoms of angina & response by session 3., Pt independently manages, Other Additional Outcomes/Goals: Intervention/Plan: Advocate for lipid panel cholesterol medication if jonas licable, Instruct on personal lipid levels & lipid goals/NCEP guidelines, Instruct on cholesterol, Other additional plan/int Referral to dietitian:: Yes 30-day Reassessments:: Progressing - Diabetes (Other Core Measures) Diabetes Type: Not Applicable Referral to Diabetic Clinic:: No Outcomes/Goals:: Able to state symptoms of, Able to state, Able to state, Other additional Intervention/Plan:: Instruct on, Refer to, Instruct on, Other 30-day Reassessments:: Progressing - Weight Mgt (Other Care) Height: 5 ft 2 in Weight:: 63.957 kg BMI: 25.7 Diagnosis Overweight/Obesity BMI> 30% ICD-10 E66: No Diagnosis High BMI/Morbid Obesity BMI> 35% ICD-10 Z68: No Outcomes/Goals: Pt sets, maintains & shows weight loss goal & trend during rehab, Other additional outcomes/goals Intervention/Plan: Instruct on ideal BMI & set weight loss goal w/patient, Assist pt to ID & incorporate diet changes for weight loss by S9, Refer to Structured Weight Loss program as appropriate, Encourage goal of using 250- 300dcal per session for weight loss, Other additional plan/interventions 30 day Reassessments:: Progressing - Healthy Eating Habits Will attend diet classes:: Yes Outcomes/Goals:: Consume diet rich in vegs,fruits,whole grain/high fiber,fish,lean meat, Limit sat/trans fats,cholesterol & added salts & sugars, Other additional outcome/goals: 30-day Reassessments:: Progressing - Education Gave educational materials for:: Signs & symptoms of hypoglycemia, Signs & symptoms of hyperglycemia, Relate diabetes to coronary artery disease, Healthy eating Nutrition - 60-Day Assessment Nutrition - 90-Day Assessment Nutrition - Final Assessment Medical - Initial Assessment Medical- 30-Day Assessment - Visit Date of Eval: 10/20/21 Session #:: 7 - Medication Compliance Preventative Medication(s):: Aspirin, Ticagrelor/P2Y12 inhibitor, Statin/lipid, Beta michael H/O mental health issues: depression, anxiety, or addiction?: No Doesn?t believe in the benefits of treatment?: No Believes medications are unnecessary or harmful?: No Has a concern about medication side effects?: No Expresses concern over the cost of medications?: No Outcomes/Goals: Verbalizes medications,desired effect & common side effects @ DC, Pt self-reports following medication regimen, Keeps card in wallet w/medications listed by DC, Other additional outcome/goals: Interventions/plans: Instruct on medication effects & side effects, Review medication list w/patient every two weeks, Instruct importance of taking meds as ordered & assist problem solving, Other additional 30-day Reassessments:: Progressing - Tobacco Use Tobacco Use: Non-smoker Do you use smokeless tobacco?: No 30-day Reassessments:: Progressing - Hypertension Hypertension Diagnosis:: Hypertension ICD-10 I10 Resting Blood Pressure:: 104/66 [place] [employer] Hypertension Guidelines: [place] [employer] Hypertension Guidelines. Normal BP Less than 120/80. Elevated BP 120/80. Hypertension Stage 1: BP 130-139/80-89. Hypertesnion Stage 2: BP 140 or higher/90 or higher. Hypertension Crisis: BP higher than 180/120 Peak Exercise Blood Pressure:: 164/90 Outcomes/Goals: Able to verbalize/achieve optimal blood pressure <130/80, Incorporates diet changes & exercise for blood pressure control by DC, Other additional outcomes/goals Interventions/plan: Instruct on optimal blood pressure, hypertension & medications, Instruct on effects of sodium, alcohol, stress, exercise &hypertension, Other additional plan/interventions 30 day Reassessments:: Progressing - Tobacco Cessation Referral Smoking Cessation Referral:: No Individual Education/Counseling:: No Education Schedule Given:: Yes Medical- 60-Day Assessment Medical- 90-Day Assessment Medical - Final Assessment Psychosocial - Initial Assess Psychosocial - 30-Day Assess - VIsit Date of Eval: 10/20/21 Session #:: 7 History of previous Mental disease:: No - Outcomes/Goals: See list Psychosocial Outcomes/Goals:: ID's personal stressors & 2 strategies to manage stress by discharge, Other Additional outcome/goals: - Intervention/Plan: See List Interventions/Plan:: Assess stressors,coping strategies & signs of derpression on admission, Instruct/assist pt to develop coping & personal stress Mgt strategies, Refer to Behavioral Health if appropriate, Refer to Physician if appropriate, Instruct patient to recognize signs & symptoms of depression, Instr uct patient to recog, Other additional plan/intervention - 30-day Reassessments: 30 day Reassessments:: Progressing Psychosocial - 60-Day Assess Psychosocial - 90-Day Assess Psychosocial - Final Assessmen Patient Health Questionnaire 30-Day Re-eval Assessment 1. Little interest or pleasure in doing things: Not at all 2. Feeling down, depressed, or hopeless: Not at all 3. Trouble falling or staying asleep, or sleeping too much: Not at all 4. Feeling tired or having little energy: Not at all 5. Poor appetite or overeating: Not at all 6. Feeling bad about yourself -- or that you are a failure or have let yourself or your family down: Several days 7. Trouble concentrating on things, such as reading the newspaper or watching television: Not at all 8. Moving or speaking so slowly that other people could have noticed. Or the opposite - being so fidgety or restless that you have been moving around a lot more than usual: Not at all 9. Thoughts that you would be better off , or of hurting yourself in some way: Not at all How difficult have these problems made it for you to do your work, take care of things at home, or get along with other people?: Not difficult at all Total Score: 1 Self-Efficacy 30-Day Re-eval Assessment We would like to know how confident you are in doing certain activities. Please select your confidence level for:: Select your confidence level for the following using the scale 1-10 where 1 is not at all confident and 10 is totally confident. Your score is the average of all 6 responses. Fatigue: How confident are you that you can keep the fatigue caused by your disease from interfering with the things you want to do? Select Number: 10 Physical Discomfort or Pain: How confident are you that you can keep the physical discomfort or pain of your disease from interfering with the things you want to do? Select Number: 9 Emotional Distress: How confident are you that you can keep the emotional distress caused by your disease from interfering with the things you want to do? Select Number: 10 Other Symptoms or Health Problems: How confident are you that you can keep other symptoms or health problems from interfering with the things you want to do? Select Number: 8 Different Tasks and Activities: How confident are you that you can do the different tasks and activities needed to manage your health condition so as to reduce your need to see a doctor? Select Number: 10 Medication: How confident are you that you can do things other than just taking medication to reduce how much your illness affects your everyday life? Select Number: 10 Total Score:: 9 Nutrition Survey
[2021-10-20 13:57] VITALS: BP 104/66; BP 164/90; BMI 25.7
== END 2021-11-06 23:59 | disposition home or self-care (01) ==
LOC: CR 13:00
PROVIDERS: PCP Family Medicine; Referring Provider Internal Medicine Cardiovascular Disease; Visit Provider Internal Medicine Cardiovascular Disease
DX: I21.11 ST elevation (STEMI) myocardial infarction involving right coronary artery (principal); I25.10 Atherosclerotic heart disease of native coronary artery without angina pectoris; Z95.5 Presence of coronary angioplasty implant and graft
CPT/HCPCS: 93798

== ENCOUNTER 2021-12-05 09:30 | Outpatient (RCR) | payer MEDICARE, OTHER, SELFPAY ==
[2021-10-20 13:57] VITALS: BMI 25.7
[2021-11-07 00:43] VITALS: BP 104/66; BP 164/90
--- NOTE | 2021-11-17 13:05 | CR.ITP_ITS ---
Diagnosis Exercise - 60-day Assessment - Visit Date of Eval: 11/17/21 Session #:: 18 - Physician Prescribed Exercise Modalities: Treadmill, NuStep, SciFit Frequency: 3x/week for 12 weeks [36 sessions] Intensity: 60-80% of age predicted maximum heart rate reserve Current METSs:: 6.0 Target Heart Rate:: 100-130 Current RPE:: 12-13 Maximum Excercise HR:: 128 Resting Blood Pressure: 110/60 Maximum Exercise Blood Pressure: 132/78 EKG Type: NSR to sinus tach with rare PACs Current Physical Activity or Exercising minutes: 51:04 - Outcomes & Goals Goals:: Verbalizes understanding of THR, RPE & goal METS by session 6, Documents in home exercise log/reports 30 min aerobic 5 day/wk by DC, Demonstrates accurate pulse taking by DC - Intervention & Plan Exercise Program Goals: Instruct on personal THR & RPE, Instruct on MET level & personal MET goal, Show patient to take own pulse /validate performance until accurate, Instruct on home exercise - 30-day Reassessments 30 day Reassessments:: Met - Physical Activity Home Exercise Physical Activity - Home Exercise: Safe Exercise, Warm-up, Self-monitoring, Cool-Down, Home Exercise > 30 min Daily, Sitting Time <3 hours/daily - Outcomes & Goals Outcomes/Goals: Demonstrates correct Warm-up/exercise Cool-Down (S3) if = 2.5 METs, Verbalizes symptoms of exercise intolerance by Session 3 (S3), Demonstrate safe equipment use (S3) & follows exercise prescrition (6) - Intervention & Plan Plan/Intervention: Instruct warm-up & cool-down if exercising at > 2 METs, Instruct on symptoms of exercise intolerance & actions to take, Instruct & monitor on saf, Assess intial functional capacity & safety risk - 30-day Reassessments 30 day Reassessments:: Met Nutrition - Initial Assessment Nutrition - 30-Day Assessment Nutrition - 60-Day Assessment - Program Goals Nutrition Program Goals: LDL <100 optimal. 100 - 129 Near optimal. 130 - 159 Borderline High. 160 - 189 High. Total Cholesterol <200 desirable. 200 - 239 Borderline High. >/= 240 High. HDL < 40 Low >/=60 High. Triglycerides <150 desirable. <199 optimal. VlDL 5 - 40. HgbA1C <7%. BMI <25 Patient has diagnosis of Hyperlipidemia (ICD E78)?: Yes - Visit Date of Assessment:: 11/17/21 Session #:: 18 - Cholesterol/Lipids Triglycerides (mg/dL): 75 - 09/15/21 Total Cholesterol (mg/dL): 196 LDL Cholesterol (mg/dL): 94 HDL Cholesterol (mg/dL): 87 Determine presence & major risk factors that modify LDL goal: Hypertension or hypertensive medication, Family history of premature CHD in Male < 55 years: female <65 yearsFa, Age men > 45 years; women >/= 55 years Outcomes/Goals: Pt IDs own risk factors & lifestyle modifications by Session 10, Verbalizes symptoms of angina & response by session 3., Pt independently manages Intervention/Plan: Instruct on personal lipid levels & lipid goals/NCEP guidelines, Instruct on cholesterol Referral to dietitian:: No - After speaking with the patient, she declined. 30-day Reassessments:: Progressing - Diabetes (Other Core Measures) Diabetes Type: Not Applicable - Weight Mgt (Other Care) Not Applicable: Yes Height: 5 ft 2 in Weight:: 142 lb BMI: 25.9 Diagnosis Overweight/Obesity BMI> 30% ICD-10 E66: No Diagnosis High BMI/Morbid Obesity BMI> 35% ICD-10 Z68: No Outcomes/Goals: Pt sets, maintains & shows weight loss goal & trend during rehab - Healthy Eating Habits Outcomes/Goals:: Consume diet rich in vegs,fruits,whole grain/high fi renae,fish,lean meat, Limit sat/trans fats,cholesterol & added salts & sugars 30-day Reassessments:: Met - Education Gave educational materials for:: Healthy eating Nutrition - 90-Day Assessment Nutrition - Final Assessment Medical - Initial Assessment Medical- 30-Day Assessment Medical- 60-Day Assessment - Visit Date of Eval: 11/17/21 Session #:: 18 - Medication Compliance Preventative Medication(s):: Aspirin, Ticagrelor/P2Y12 inhibitor, Statin/lipid, Beta michael H/O mental health issues: depression, anxiety, or addiction?: No Doesn?t believe in the benefits of treatment?: No Believes medications are unnecessary or harmful?: No Has a concern about medication side effects?: No Expresses concern over the cost of medications?: No Outcomes/Goals: Verbalizes medications,desired effect & common side effects @ DC, Pt self-reports following medication regimen, Keeps card in wallet w/medications listed by DC Interventions/plans: Instruct on medication effects & side effects, Review medication list w/patient every two weeks, Instruct importance of taking meds as ordered & assist problem solving 30-day Reassessments:: Met - Tobacco Use Tobacco Use: Non-smoker - Hypertension Hypertension Diagnosis:: Hypertension ICD-10 I10 Resting Blood Pressure:: 110/60 [employer] [place] [employer] Hypertension Guidelines: [place] [employer] Hypertension Guidelines. Normal BP Less than 120/80. Elevated BP 120/80. Hypertension Stage 1: BP 130-139/80-89. Hypertesnion Stage 2: BP 140 or higher/90 or higher. Hypertension Crisis: BP higher than 180/120 Peak Exercise Blood Pressure:: 132/78 Outcomes/Goals: Able to verbalize/achieve optimal blood pressure <130/80, Incorporates diet changes & exercise for blood pressure control by DC Interventions/plan: Instruct on optimal blood pressure, hypertension & medications, Instruct on effects of sodium, alcohol, stress, exercise &hypertension 30 day Reassessments:: Met - Tobacco Cessation Referral Smoking Cessation Referral:: No Individual Education/Counseling:: No Education Schedule Given:: Yes Medical- 90-Day Assessment Medical - Final Assessment Psychosocial - Initial Assess Psychosocial - 30-Day Assess Psychosocial - 60-Day Assess - VIsit Date of Eval: 11/17/21 Session #:: 18 Not Applicable: Yes History of previous Mental disease:: No - Psychosocial Test Tool Used:: PHQ-9 Questionnaire phq-9 Severity: Severity. 1-4 Minimal Depression. 5-9 Mild Depression. 10-14 Moderate Depression. 15-19 Moderately Sever Depression. 20-27 Severe Depression. Rule: - Referral to Behavioral Health PS - Interventions: Yes Attend Stress Management Classes, No Referral to [facility] if PHQ-9 score >9:, No Referral to [facility], No Referral to Physician if PHQ-9 if score is 5-9: - Outcomes/Goals: See list Psychosocial Outcomes/Goals:: ID's personal stressors & 2 strategies to manage stress by discharge - Intervention/Plan: See List Interventions/Plan:: Assess stressors,coping strategies & signs of derpression on admission, Instruct/assist pt to develop coping & personal stress Mgt strategies, Instruct patient to recognize signs & symptoms of depression, Instruct patient to recog - 30-day Reassessments: 30 day Reassessments:: Met Psychosocial - 90-Day Assess Psychosocial - Final Assessmen Patient Health Questionnaire 60-Day Re-eval Assessment 1. Little interest or pleasure in doing things: Not at all 2. Feeling down, depressed, or hopeless: Not at all 3. Trouble falling or staying asleep, or sleeping too much: Several days 4. Feeling tired or having little energy: Not at all 5. Poor appetite or overeating: Not at all 6. Feeling bad about yourself -- or that you are a failure or have let yourself or your family down: Not at all 7. Trouble concentrating on things, such as reading the newspaper or watching television: Not at all 8. Moving or speaking so slowly that other people could have noticed. Or the opposite - being so fidgety or restless that you have been moving around a lot more than usual: Not at all 9. Thoughts that you would be better off , or of hurting yourself in some way: Not at all How difficult have these problems made it for you to do your work, take care of things at home, or get along with other people?: Not difficult at all Total Score: 1 Self-Efficacy 60-Day Re-eval Assessment We would like to know how confident you are in doing certain activities. Please select your confidence level for:: Select your confidence level for the following using the scale 1-10 where 1 is not at all confident and 10 is totally confident. Your score is the average of all 6 responses. Fatigue: How confident are you that you can keep the fatigue caused by your disease from interfering with the things you want to do? Select Number: 9 Physical Discomfort or Pain: How confident are you that you can keep the physical discomfort or pain of your disease from interfering with the things you want to do? Select Number: 9 Emotional Distress: How confident are you that you can keep the emotional distress caused by your disease from interfering with the things you want to do? Select Number: 9 Other Symptoms or Health Problems: How confident are you that you can keep other symptoms or health problems from interfering with the things you want to do? Select Number: 9 Different Tasks and Activities: How confident are you that you can do the different tasks and activities needed to manage your health condition so as to reduce your need to see a doctor? Select Number: 9 Medication: How confident are you that you can do things other than just taking medication to reduce how much your illness affects your everyday life? Select Number: 9 Total Score:: 9 Nutrition Survey
[2021-11-17 13:12] VITALS: BP 110/60; BP 132/78; BMI 25.9
== END 2021-12-06 23:59 ==
LOC: CR 09:30
PROVIDERS: PCP Family Medicine; Referring Provider Internal Medicine Cardiovascular Disease; Visit Provider Internal Medicine Cardiovascular Disease
DX: I21.11 ST elevation (STEMI) myocardial infarction involving right coronary artery (principal); I25.10 Atherosclerotic heart disease of native coronary artery without angina pectoris; Z95.5 Presence of coronary angioplasty implant and graft
CPT/HCPCS: 93798

== ENCOUNTER 2021-12-24 09:30 | Outpatient (RCR) | payer MEDICARE, OTHER, SELFPAY ==
[2021-11-17 13:12] VITALS: BMI 25.9
[2021-12-07 00:36] VITALS: BP 110/60; BP 132/78
--- NOTE | 2021-12-22 14:50 | PCM.CR.ITP ---
Diagnosis Exercise - 90-day Assessment - Visit Date of Eval: 12/22/21 Session #:: 33 - Physician Prescribed Exercise Modalities: Treadmill, NuStep Frequency: 3x/week for 12 weeks [36 sessions] Intensity: 60-80% of age predicted maximum heart rate reserve Current METSs:: 7.5 Target Heart Rate:: 100-130 Current RPE:: 13-14 Maximum Excercise HR:: 136 Resting Blood Pressure: 112/64 Maximum Exercise Blood Pressure: 200/80 EKG Type: SB to ST with rare pac and pvc - Outcomes & Goals Goals:: Verbalizes understanding of THR, RPE & goal METS by session 6, Documents in home exercise log/reports 30 min aerobic 5 day/wk by DC, Demonstrates accurate pulse taking by DC, Other additional outcome/goals: see below - Intervention & Plan Exercise Program Goals: Instruct on personal THR & RPE, Instruct on MET level & personal MET goal, Show patient to take own pulse /validate performance until accurate, Instruct on home exercise, Other additional plan/int - 30-day Reassessments 30 day Reassessments:: Progressing - Physical Activity Home Exercise Physical Activity - Home Exercise: Safe Exercise, Warm-up, Self-monitoring, Cool-Down, Home Exercise > 30 min Daily, Sitting Time <3 hours/daily - Outcomes & Goals Outcomes/Goals: Demonstrates correct Warm-up/exercise Cool-Down (S3) if = 2.5 METs, Verbalizes symptoms of exercise intolerance by Session 3 (S3), Demonstrate safe equipment use (S3) & follows exercise prescrition (6), Other: See below - Intervention & Plan Plan/Intervention: Instruct warm-up & cool-down if exercising at > 2 METs, Instruct on symptoms of exercise intolerance & actions to take, Instruct & monitor on saf, Assess intial functional capacity & safety risk, Other See below - 30-day Reassessments 30 day Reassessments:: Progressing Nutrition - Initial Assessment Nutrition - 30-Day Assessment Nutrition - 60-Day Assessment Nutrition - 90-Day Assessment - Program Goals Nutrition Program Goals: LDL <100 optimal. 100 - 129 Near optimal. 130 - 159 Borderline High. 160 - 189 High. Total Cholesterol <200 desirable. 200 - 239 Borderline High. >/= 240 High. HDL < 40 Low >/=60 High. Triglycerides <150 desirable. <199 optimal. VlDL 5 - 40. HgbA1C <7%. BMI <25 Patient has diagnosis of Hyperlipidemia (ICD E78)?: Yes - Visit Date of Assessment:: 12/22/21 Session #:: 33 - Cholesterol/Lipids Determine presence & major risk factors that modify LDL goal: Hypertension or hypertensive medication, Low HDL cholesterol <40 mg/dL*, Family history of premature CHD in Male < 55 years: female <65 yearsFa, Age men > 45 years; women >/= 55 years Outcomes/Goals: Pt IDs own risk factors & lifestyle modifications by Session 10, Verbalizes symptoms of angina & response by session 3., Pt independently manages, Other Additional Outcomes/Goals: Referral to dietitian:: No - pt declines 30-day Reassessments:: Progressing - Diabetes (Other Core Measures) Diabetes Type: Not Applicable - Weight Mgt (Other Care) Height: 5 ft 2 in Weight:: 66.224 kg BMI: 26.6 Diagnosis Overweight/Obesity BMI> 30% ICD-10 E66: No Diagnosis High BMI/Morbid Obesity BMI> 35% ICD-10 Z68: No Outcomes/Goals: Pt sets, maintains & shows weight loss goal & trend during rehab, Other additional outcomes/goals Intervention/Plan: Instruct on ideal BMI & set weight loss goal w/patient, Assist pt to ID & incorporate diet changes for weight loss by S9, Refer to Structured Weight Loss program as appropriate, Encourage goal of using 250-300dcal per session for weight loss, Other additional plan/interventions 30 day Reassessments:: Progressing - Healthy Eating Habits Will attend diet classes:: Yes Outcomes/Goals:: Consume diet rich in vegs,fruits,whole grain/high fiber,fish,lean meat, Limit sat/trans fats,cholesterol & added salts & sugars, Other additional outcome/goals: Intervention/Plan:: Assess current eating habits, Other Additional plan/interventions 30-day Reassessments:: Progressing - Education Gave educational materials for:: Signs & symptoms of hypoglycemia, Signs & symptoms of hyperglycemia, Relate diabetes to coronary artery disease Nutrition - Final Assessment Medical - Initial Assessment Medical- 30-Day Assessment Medical- 60-Day Assessment Medical- 90-Day Assessment - Visit Date of Eval: 12/22/21 Session #:: 33 - Medication Compliance Preventative Medication(s):: Aspirin, Ticagrelor/P2Y12 inhibitor, Statin/lipid, Beta michael H/O mental health issues: depression, anxiety, or addiction?: No Doesn?t believe in the benefits of treatment?: No Believes medications are unnecessary or harmful?: No Has a concern about medication side effects?: No Expresses concern over the cost of medications?: No Outcomes/Goals: Verbalizes medications,desired effect & common side effects @ DC, Pt self-reports following medication regimen, Keeps card in wallet w/medications listed by DC, Other additional outcome/goals: Interventions/plans: Instruct on medication effects & side effects, Review medication list w/patient every two weeks, Instruct importance of taking meds as ordered & assist problem solving, Other additional 30-day Reassessments:: Progressing - Tobacco Use Tobacco Use: Non-smoker - Hypertension Hypertension Diagnosis:: Hypertension ICD-10 I10 Resting Blood Pressure:: 112/64 [employer] Hypertension Guidelines: [place] [employer] Hypertension Guidelines. Normal BP Less than 120/80. Elevated BP 120/80. Hypertension Stage 1: BP 130-139/80-89. Hypertesnion Stage 2: BP 140 or higher/90 or higher. Hypertension Crisis: BP higher than 180/120 Peak Exercise Blood Pressure:: 200/80 Outcomes/Goals: Able to verbalize/achieve optimal blood pressure <130/80, Incorporates diet changes & exercise for blood pressure control by DC, Other additional outcomes/goals Interventions/plan: Instruct on optimal blood pressure, hypertension & medications, Instruct on effects of sodium, alcohol, stress, exercise &hypertension, Other additional plan/interventions 30 day Reassessments:: Progressing - Tobacco Cessation Referral Smoking Cessation Referral:: No Individual Education/Counseling:: No Education Schedule Given:: Yes Medical - Final Assessment Psychosocial - Initial Assess Psychosocial - 30-Day Assess Psychosocial - 60-Day Assess Psychosocial - 90-Day Assess - VIsit Date of Eval: 12/22/21 Session #:: 33 History of previous Mental disease:: No - Psychosocial Test Tool Used:: [employer] QOL Cardiac, PHQ-9 Questionnaire phq-9 Severity: Severity. 1-4 Minimal Depression. 5-9 Mild Depression. 10-14 Moderate Depression. 15-19 Moderately Sever Depression. 20-27 Severe Depression. Rule: - Outcomes/Goals: See list Psychosocial Outcomes/Goals:: ID's personal stressors & 2 strategies to manage stress by discharge, Other Additional outcome/goals: - Intervention/Plan: See List Interventions/Plan:: Assess stressors,coping strategies & signs of derpression on admission, Instruct/assist pt to develop coping & personal stress Mgt strategies, Refer to Behavioral Health if appropriate, Refer to Physician if appropriate, Instruct patient to recognize signs & symptoms of depression, Instruct patient to recog, Other additional plan/intervention - 30-day Reassessments: 30 day Reassessments:: Progressing Psychosocial - Final Assessmen Patient Health Questionnaire 90-Day Re-eval Assessment 1. Little interest or pleasure in doing things: Not at all 2. Feeling down, depressed, or hopeless: Not at all 3. Trouble falling or staying asleep, or sleeping too much: Several days 4. Feeling tired or having little energy: Not at all 5. Poor appetite or overeating: Not at all 6. Feeling bad about yourself -- or that you are a failure or have let yourself or your family down: Not at all 7. Trouble concentrating on things, such as reading the newspaper or watching television: Not at all 8. Moving or speaking so slowly that other people could have noticed. Or the opposite - being so fidgety or restless that you have been moving around a lot more than usual: Not at all 9. Thoughts that you would be better off , or of hurting yourself in some way: Not at all How difficult have these problems made it for you to do your work, take care of things at home, or get along with other people?: Not difficult at all Total Score: 1 Self-Efficacy 90-Day Re-eval Assessment We would like to know how confident you are in doing certain activities. Please select your confidence level for:: Select your confidence level for the following using the scale 1-10 where 1 is not at all confident and 10 is totally confident. Your score is the average of all 6 responses. Fatigue: How confident are you that you can keep the fatigue caused by your disease from interfering with the things you want to do? Select Number: 9 Physical Discomfort or Pain: How confident are you that you can keep the physical discomfort or pain of your disease from interfering with the things you want to do? Select Number: 9 Emotional Distress: How confident are you that you can keep the emotional distress caused by your disease from interfering with the things you want to do? Select Number: 9 Other Symptoms or Health Problems: How confident are you that you can keep other symptoms or health problems from interfering with the things you want to do? Select Number: 9 Different Tasks and Activities: How confident are you that you can do the different tasks and activities needed to manage your health condition so as to reduce your need to see a doctor? Select Number: 9 Medication: How confident are you that you can do things other than just taking medication to reduce how much your illness affects your everyday life? Select Number: 9 Total Score:: 9 Nutrition Survey
[2021-12-22 14:59] VITALS: BP 112/64; BP 200/80; BMI 26.6
== END 2022-01-06 23:59 ==
LOC: CR 09:30
PROVIDERS: PCP Family Medicine; Referring Provider Internal Medicine Cardiovascular Disease; Visit Provider Internal Medicine Cardiovascular Disease
DX: I25.2 Old myocardial infarction (principal); I25.10 Atherosclerotic heart disease of native coronary artery without angina pectoris; Z95.5 Presence of coronary angioplasty implant and graft
CPT/HCPCS: 93798

== ENCOUNTER 2022-01-18 14:56 | Emergency (ER) | payer MEDICARE, OTHER, SELFPAY ==
[2021-12-22 14:59] VITALS: BMI 26.6
[2022-01-18 14:58] VITALS: BP 134/79; PULSE 83; RESP 14; TEMP 36.8; O2SAT 96; BMI 25.9
--- NOTE | 2022-01-18 15:14 | EDS_ITS ---
HPI <CLAYTON Lezama - Last Filed: 01/18/22 16:15> History of Present Illness Chief Complaint: Nausea/Vomiting Narrative Narrative: 66-year-old female with history of CAD, rheumatoid arthritis, history of CT September 2021, presents to the emergency department with nausea, chest pressure, back pain. Patient states she woke up around 6 AM this morning with nausea, she then developed right-sided chest pain that went through to her back. Patient is nervous secondary to her CT, she is here for evaluation. Patient denies any shortness of breath. 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 Fibromyalgia History of ST elevation myocardial infarction (STEMI) (09/13/21) Hx of Sjogren's disease Rheumatoid arthritis Rheumatoid arthritis of cervical spine Home Medications oxybutynin chloride 10 mg PO DAILY 09/13/21 [History Last Taken 10/03/21] aspirin 81 mg PO BREAKFAST #30 tab 09/15/21 [Rx Last Taken 10/03/21] lisinopril 2.5 mg PO DAILY #30 tab 09/15/21 [Rx Last Taken 10/03/21] folic acid 1 mg PO BID 10/03/21 [History Last Taken 10/03/21] gabapentin 300 mg PO TID 10/03/21 [History Last Taken 10/03/21] methotrexate sodium 15 mg PO QWEEK 10/03/21 [History Last Taken Unknown] atorvastatin 80 mg tablet 80 mg PO QHS #90 tab 11/28/21 [Rx Last Taken Unknown] metoprolol tartrate 25 mg tablet 12.5 mg PO BID #180 tab 11/28/21 [Rx Last Taken Unknown] clopidogrel 75 mg tablet 75 mg PO .COMPLEX #90 tab 01/02/22 [Rx Last Taken Unknown] ondansetron 4 mg PO Q8H PRN #10 tab 01/18/22 [Rx Last Taken Unknown] Allergy/AdvReac Type Severity Reaction Status Date / Time No Known Allergies Allergy Verified 01/18/22 15:00 Surgical History History of coronary artery stent placement (09/13/21) Hx of section Hx of cholecystectomy Social History Smoking Status: Never smoker ROS <CLAYTON Lezama - Last Filed: 01/18/22 16:15> ROS ED ROS Narrative Constitutional: Negative for fever, chills, weight loss, weakness Eyes: Negative for vision loss, vision change, double vision ENT: Negative for any sore throat, ear pain, congestion Cardiovascular: Negative for any tightness, palpitations. Positive chest pain Respiratory: Negative for any cough, sputum production, hemoptysis, dyspnea, dyspnea on exertion, orthopnea Gastrointestinal: Negative for any abdominal pain, vomiting, diarrhea, constipation, blood in stool, blood in vomit. Positive for nausea : Negative for any urinary frequency, dysuria, retention, blood in urine Muscle skeletal: Negative for any muscle joint pain, stiffness, myalgias, arthralgias, neck pain, back pain Neurological: Negative for any headache, syncope, numbness or tingling, dizziness Skin: Negative for any rashes, lumps, itching, abrasions, lacerations Psychiatric: Negative for any depression, anxiety, stress, suicidal ideation, homicidal ideation Hematologic: Negative for any easy bruising, excessive bruising, easy bleeding Allergies: Negative for any eczema, hives, rash EXAM <CLAYTON Lezama - Last Filed: 01/18/22 16:15> Physical Exam Narrative Exam Narrative: Vital signs reviewed. HEET: Head normocephalic atraumatic, TMs clear bilaterally. Posterior pharynx is clear, moist mucous membranes. Nares clear bilaterally. Neck: Supple with no lymphadenopathy or tenderness. No signs of meningismus, negative jolt sign. Cardiac: Regular rate and rhythm no murmurs gallops or rubs, equal peripheral pulses bilaterally. Respiratory: Lungs clear to auscultation bilaterally. No chest tenderness. Abdomen: Soft, nontender, nondistended. No abdominal bruit or pulsatile masses. No hepatosplenomegaly Extremities: No peripheral edema, no signs of gross trauma or deformity. Active full range of motion of all extremities. Neuro: Cranial nerves II through XII intact, no focal neurological deficits. Skin: Clean dry and intact with no rash, purpura, petechiae, vesicles or pustules. Backs/flank: No CVA tenderness, no midline spinal tenderness, no deformity. Psych: Normal mood and affect. No SI, HI or acute psychosis. Const Vital Signs: 01/18/22 14:58 Temperature 98.3 F Temperature Source Temporal Pulse Rate 83 Respiratory Rate 14 Blood Pressure 134/79 H Blood Pressure Mean 97 Pulse Ox 96 Oxygen Delivery Method Room Air Positive well nourished and well developed General Appearance ED: well developed <Dr. Edilberto Lorenzo MD - Last Filed: 01/18/22 15:55> Physical Exam Const Vital Signs: 01/18/22 14:58 Temperature 98.3 F Temperature Source Temporal Pulse Rate 83 Respiratory Rate 14 Blood Pressure 134/79 H Blood Pressure Mean 97 Pulse Ox 96 Oxygen Delivery Method Room Air MDM <CLAYTON Lezama - Last Filed: 01/18/22 16:15> [facility] MDM Narrative Medical decision making narrative: Patient appears well, patient appears nontoxic, vital signs are stable. Patient presents to the emergency department with complaints of nausea, chest pain. Patient became nervous because of her history of CT a few months ago. Patient did receive a full cardiac work-up here. Patient's EKG showed normal sinus rhythm, rate of 70 bpm, there is no ST elevation. Patient CBC was unremarkable, patient's chemistries were unremarkable, patient's troponin was negative. At this time on reevaluation, the patient felt much better. 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 There is no evidence of any cardiac pathology at this time. Patient instructed return for any worsening symptoms Lab Data Attestation: I reviewed the patient's lab results. Labs: Laboratory Results - last 24 hr 01/18/22 01/18/22 15:20 15:20 WBC 8.2 RBC 4.78 Hgb 15.0 Hct 44.9 MCV 93.9 MCH 31.4 MCHC 33.4 RDW Std Deviation 48.8 H RDW Coeff of Jason 14.1 Plt Count 301 MPV 9.9 Immature Gran % (Auto) 0.400 Neut % (Auto) 85.6 H Lymph % (Auto) 8.7 L Sherman % (Auto) 4.4 Eos % (Auto) 0.5 Baso % (Auto) 0.4 Absolute Neuts (auto) 7.1 Absolute Lymphs (auto) 0.72 L Nucleated RBC % 0 Sodium 137 Potassium 4.1 Chloride 104 Carbon Dioxide 25.0 Anion Gap 8 BUN 16 Creatinine 0.68 Estim Creat Clear Calc 43.77 Est GFR (MDRD) Af Amer 110 Est GFR (MDRD) Non-Af 91 BUN/Creatinine Ratio 23.4 H Glucose 96 Calcium 9.1 Total Bilirubin 0.70 Direct Bilirubin 0.14 AST 36 ALT 36 Alkaline Phosphatase 76 Troponin I High Sens 6 Total Protein 8.1 Albumin 4.0 Globulin 4.1 Lipase 44 L EKG Normal sinus rhythm: Attestation: I personally reviewed and interpreted this EKG as follows: Interpretation: Sinus Rhythm Comments: Normal sinus rhythm, rate of 70 bpm, no ST elevation. NV interval 150 ms, QRS duration 82 ms. <Dr. Edilberto Lorenzo MD - Last Filed: 01/18/22 15:55> [facility] MDM Narrative Medical decision making narrative: I have personally performed a face to face assessment of the patient and have reviewed the ZAFAR Note. I performed a substantive portion of the visit including all aspects of the following. My lowe findings include: History is [66-year-old female complaining of nausea since around 6 AM this morning. History of cardiac disease. Prior cholecystectomy. Denies abdominal pain. Denies vomiting or diarrhea. No fever or dysuria. Myself and the nurse practitioner evaluate this patient together.] Exam is [66-year-old female no acute distress. Vital signs stable afebrile. HEENT exam normal. Lungs are clear. Heart regular rate and rhythm no murmur. Abdomen soft nontender normal bowel sounds no peritoneal signs. No Jeronimo sign. Moving all 4 extremities. Neurologically she is awake and alert.] Medical Decision Making [66-year-old with nausea with a benign exam. Will undergo cardiac work-up with a lipase and a liver. Treated with IV Zofran.] Other additions or changes: [None] Lab Data Attestation: I reviewed the patient's lab results. Lab results narrative: CBC normal white count 8. H&H of 15 and 44. Labs: Laboratory Results - last 24 hr 01/18/22 01/18/22 15:20 15:20 WBC 8.2 RBC 4.78 Hgb 15.0 Hct 44.9 MCV 93.9 MCH 31.4 MCHC 33.4 RDW Std Deviation 48.8 H RDW Coeff of Jason 14.1 Plt Count 301 MPV 9.9 Immature Gran % (Auto) 0.400 Neut % (Auto) 85.6 H Lymph % (Auto) 8.7 L Sherman % (Auto) 4.4 Eos % (Auto) 0.5 Baso % (Auto) 0.4 Absolute Neuts (auto) 7.1 Absolute Lymphs (auto) 0.72 L Nucleated RBC % 0 Sodium 137 Potassium 4.1 Chloride 104 Carbon Dioxide 25.0 Anion Gap 8 BUN 16 Creatinine 0.68 Estim Creat Clear Calc 43.77 Est GFR (MDRD) Af Amer 110 Est GFR (MDRD) Non-Af 91 BUN/Creatinine Ratio 23.4 H Glucose 96 Calcium 9.1 Total Bilirubin 0.70 Direct Bilirubin 0.14 AST 36 ALT 36 Alkaline Phosphatase 76 Troponin I High Sens 6 Total Protein 8.1 Albumin 4.0 Globulin 4.1 Lipase 44 L Discharge Plan Triage Chief Complaint: Nausea/Vomiting ED Midlevel Provider: Lukas Adams ED Provider: Edilberto Lorenzo Dx/Rx/DC Orders Clinical Impression: Nausea Instructions: Nausea Vomit Control Prescriptions: New ondansetron 4 mg tablet,disintegrating 4 mg PO Q8H PRN (Reason: nausea and vomiting) Qty: 10 RF: 0 No Action oxybutynin chloride 10 mg tablet extended release 24hr 10 mg PO DAILY RF: 0 aspirin 81 mg Tablet,Delayed Release (Dr/Ec) 81 mg PO BREAKFAST Qty: 30 RF: 2 lisinopril 2.5 mg Tablet 2.5 mg PO DAILY Qty: 30 RF: 2 Hold Instructions: hypotension gabapentin 300 mg Capsule 300 mg PO TID RF: 0 folic acid 1 mg Tablet 1 mg PO BID RF: 0 methotrexate sodium 2.5 mg tablet 15 mg PO QWEEK RF: 0 atorvastatin 80 mg tablet 80 mg PO QHS Qty: 90 RF: 3 metoprolol tartrate 25 mg tablet 12.5 mg PO BID Qty: 180 RF: 3 clopidogrel 75 mg tablet 75 mg PO .COMPLEX Qty: 90 RF: 3 Primary Care Provider: Bandar Lopez Referrals: Bandar Lopez MD [Primary Care Provider] - Activity Restrictions/Additional Instructions: Please follow-up with your PCP as well as your cardiology Print Language: Belarusian Disposition Disposition: Home, Self Care
[2022-01-18] MEDS: Ondansetron 4 MG/2 ML Vial IV (15:21)
[2022-01-18 15:39] LABS: Absolute Lymphocyte Count 0.72 X10^3/uL (0.83-4.51); Absolute Neutrophil Count 7.1 X10^3/uL (2.0-7.7); Basophil# 0.03 X10^3/uL; Basophil% 0.4 % (0-1); Eosinophil# 0.04 X10^3/uL; Eosinophils% 0.5 % (0-5); Hematocrit 44.9 % (37-47); Lymphocyte # 0.72 X10^3/ul (0.83-4.51); Lymphocyte % 8.7 % (19-41); Mean Corp Hgb Conc 33.4 g/dL (32-36); Mean Corpuscular Hgb 31.4 pg (27.0-32.0); Mean Corpuscular Volume 93.9 fL (81-99); Mean Platelet Vol. 9.9 fl (6.2-12.0); Monocyte# 0.36 X10^3/uL; Monocyte% 4.4 % (0-10); NRBC Flagged by Analyzer 0 % (0-5); Neutrophil # 7.05 X10^3/uL (2.7-7.7); Neutrophil % 85.6 % (47-70); Platelet Count 301 K/mm3 (150-450); RBC Distribution Width CV 14.1 % (11.6-14.6); RBC Distribution Width SD 48.8 fl (35.1-43.9); Red Blood Count 4.78 M/mm3 (4.2-5.4); White Blood Count 8.2 K/mm3 (4.4-11.0)
--- NOTE | 2022-01-18 15:50 | EKG12_ITS ---
Test Reason : N V Blood Pressure : / mmHG Vent. Rate : 070 BPM Atrial Rate : 070 BPM P-R Int : 150 ms QRS Dur : 082 ms QT Int : 384 ms P-R-T Axes : 052 035 013 degrees QTc Int : 414 ms Normal sinus rhythm Normal ECG Confirmed by CYNTHIA SCOTT MD ([id number]), editor publications VIVI GRAY ([id number]) on 01/19/2022 11:21:33 AM Referred By: IZZY Confirmed By:CYNTHIA SCOTT MD
[2022-01-18 15:59] LABS: AST(SGOT) 36 U/L (15-37); Alanine Aminotransfer ALT/SGPT 36 U/L (13-56); Alkaline Phosphatase 76 U/L (45-117); Anion Gap 8 (5-15); BUN 16 mg/dL (7-18); BUN/Creat Ratio 23.4 RATIO (10-20); Bilirubin, Direct 0.14 mg/dL (0.00-0.30); Calcium,Total 9.1 mg/dL (8.5-10.1); Chloride 104 mmol/L (98-107); Creatinine, Serum 0.68 mg/dL (0.55-1.02); EST Glomerular Filtration Rate 91 mL/min (>60); Est Glom Filt Rate - Afr Amer 110 mL/min (>60); Estimated Creatinine Clearance 43.77 ml/min; Globulin 4.1 g/dL (2.2-4.2); Glucose 96 mg/dL (74-106); Lipase 44 U/L (73-393); Potassium 4.1 mmol/L (3.5-5.1); Protein, Total 8.1 g/dL (6.4-8.2); Sodium Level 137 mmol/L (136-145); Troponin-I HS 6 pg/mL (3.0-54.0)
[2022-01-18 16:13] VITALS: BP 131/83; PULSE 83; RESP 14; O2SAT 96
== END 2022-01-18 16:20 | disposition home or self-care (01) ==
PROVIDERS: Nurse Practitioner; Emergency Provider Emergency Medicine; PCP Family Medicine; Visit Provider Emergency Medicine
DX: R11.2 Nausea with vomiting, unspecified (principal); M06.9 Rheumatoid arthritis, unspecified; R07.9 Chest pain, unspecified; I25.10 Atherosclerotic heart disease of native coronary artery without angina pectoris; I25.2 Old myocardial infarction
CPT/HCPCS: 80048; 80076; 83690; 84484; 85025; 93005; 96374; 99282; A4216; J2405

== ENCOUNTER → 2022-03-13 | Outpatient (CLI) | payer MEDICARE, OTHER, SELFPAY ==
[2021-12-22 14:59] VITALS: BMI 26.6
--- NOTE | 2022-03-13 12:51 | STRESSREP ---
Stress Test Report Exercise myocardial perfusion stress test. 66-year-old lady with a history of chest pain. Stress protocol: Resting EKG demonstrates normal sinus rhythm with a rate of 61 bpm normal intervals are noted resting blood pressure is 122/62 mmHg. Patient exercised according to regular Gerard protocol for total duration of 8 minutes patient completed 2 minutes into stage III of the Gerard protocol the maximum heart rate attained was 157 bpm it was 101% of max impacted heart rate the maximum workload was 10.1 metabolic equivalents. At rest there were no ST or T wave changes noted to suggest ischemia and at peak exercise upsloping ST changes were noted with did not meet the criteria for ischemia. No clinical angina was noted the test was terminated due to target heart rate being achieved. There was some atypical chest discomfort noted. Myocardial perfusion protocol. 11.7 mCi of technetium 99m sestamibi was injected at rest. The patient exercised according to regular Gerard protocol for total duration of 8 minutes and at peak exercise 33.1 mCi of technetium 99m sestamibi was injected stress images were obtained stress and rest images were reconstructed and compared in the short axis vertical long and horizontal long axis. Gated images were also obtained. Perfusion SPECT analysis: Review of the stress images demonstrate mild reduction of perfusion noted in the mid anterior wall. The septum inferior wall and lateral wall appear to be normally perfused. The resting images demonstrate improvement suggesting probable mild amount of mid anterior ischemia. No previous infarct was noted. Gated SPECT analysis: The gated ejection fraction is noted to be 74%. Conclusion: Mildly abnormal exercise myocardial perfusion stress test at a high workload with mild anterior ischemia. Preserved ejection fraction.
== END | disposition home or self-care (01) ==
PROVIDERS: PCP Family Medicine; Referring Provider Internal Medicine Cardiovascular Disease; Visit Provider Internal Medicine Cardiovascular Disease
DX: R94.39 Abnormal result of other cardiovascular function study (principal); Z95.5 Presence of coronary angioplasty implant and graft
CPT/HCPCS: 78452; 93017; A9500; A4216

== ENCOUNTER 2022-03-20 06:38 | Day surgery (SDC) | payer MEDICARE, OTHER, SELFPAY ==
[2021-12-22 14:59] VITALS: BMI 26.6
[2022-03-16 12:07] LABS: Absolute Lymphocyte Count 2.41 X10^3/uL (0.83-4.51); Basophil# 0.09 X10^3/uL; Basophil% 1.5 % (0-1); Eosinophil# 0.09 X10^3/uL; Eosinophils% 1.5 % (0-5); Hematocrit 42.7 % (37-47); Hemoglobin 14.3 g/dL (12.0-15.0); Lymphocyte # 2.41 X10^3/ul (0.83-4.51); Lymphocyte % 39.6 % (19-41); Mean Corp Hgb Conc 33.5 g/dL (32-36); Mean Corpuscular Hgb 31.9 pg (27.0-32.0); Mean Corpuscular Volume 95.3 fL (81-99); Mean Platelet Vol. 9.8 fl (6.2-12.0); Monocyte# 0.44 X10^3/uL; Monocyte% 7.2 % (0-10); NRBC Flagged by Analyzer 0 % (0-5); Neutrophil # 3.04 X10^3/uL (2.7-7.7); Platelet Count 290 K/mm3 (150-450); RBC Distribution Width CV 13.4 % (11.6-14.6); RBC Distribution Width SD 46.3 fl (35.1-43.9); Red Blood Count 4.48 M/mm3 (4.2-5.4); White Blood Count 6.1 K/mm3 (4.4-11.0)
[2022-03-16 12:29] LABS: Anion Gap 3 (5-15); BUN 16 mg/dL (7-18); Calcium,Total 9.2 mg/dL (8.5-10.1); Chloride 105 mmol/L (98-107); Creatinine, Serum 0.73 mg/dL (0.55-1.02); EST Glomerular Filtration Rate 85 mL/min (>60); Est Glom Filt Rate - Afr Amer 103 mL/min (>60); Glucose 107 mg/dL (74-106); Potassium 4.3 mmol/L (3.5-5.1); Sodium Level 139 mmol/L (136-145)
[2022-03-19 09:56] VITALS: BMI 26.9
--- NOTE | 2022-03-20 09:22 | CL.D_ITS ---
Patient Name: ZAIDA YOUNG Study Date: 03/20/2022 Performing: Perez Multani MD Ht: 61.81 inches 157 cm : 1955 Wt: 147.71 lbs 67 kg Age: 66 Gender: female BSA: 1.68 PROCEDURE(S) PERFORMED DC01-(60501)LHC/COR/LV CLINICAL PROFILE AND INDICATIONS Indications: Suspected CAD Heart Failure: None Stress/Imaging Date: 03/13/22Stress Test with SPECT MPI: Positive Low Risk CAD Presentations: Symptom unlikely to be ischemic. CONCLUSIONS Previously placed stent in the LAD and right coronary artery are noted to be patent. Preserved eject ion fraction. RECOMMENDATIONS Medical therapy DESCRIPTION OF PROCEDURE The patient arrived to the procedure lab. The risks and benefits of the procedure as well as a full d escription of our services here and current unavailability of surgical backup were fully explained to the patient and/or their significant other prior to the catheterization. The Timeout was completed, verifying the correct patient and procedure. The patient's procedural site was prepped and draped in the usual fashion. Local anesthetic was given subcutaneously to right groin region with Lidocaine 2%. Using a modified Seldinger technique, arterial access was obtained via the right femoral artery, a 5 Fr sheath was inserted. Left Coronary Artery selective angiography was performed in multiple views u sing a 5 Fr. JL4 catheter. Right Coronary Artery selective angiography was then performed in multiple views using a 5 Fr. 3DRC (Bulmaro) catheter. Left Ventriculography was performed in MYERS projection using a 5 Fr. Pigtail catheter. LV to AO pullback pressures were then recorded.Contrast was injected through the sheath and the Right Iliac and Femoral artery were assessed for possible gautam sure device. CORONARY ANGIOGRAPHY DOMINANCE: Right Dominant LEFT HEART ASSESSMENT Left Ventricular Ejection Fraction: by LV Gram 55 % Normal LV wall motion Normal Left Ventricular systolic function LEFT MAIN: Angiographically normal LEFT ANTERIOR DESCENDING ARTERY: MID LAD: Previously placed stent is patent CIRCUMFLEX ARTERY: MID CIRC: Mild luminal irregularities less than 30% RIGHT CORONARY ARTERY: MID RCA: Previously placed stent is patent COMPLICATIONS No Complications PROCEDURE MEDICATIONS Fentanyl 50 mcg IV Versed 1 mg IV Oxygen: 2 L/min via nasal cannula IV Bolus: .9 NaCl 100 ml total 03/20/2022 08:49:54 SUMMARY OF HEMODYNAMIC DATA Time AIR REST ECG 07:02:03 AO 119/60 (82) SA 08:52:39 LV 128/10, 16 08:58:33 LV 124/11, 16 08:58:39 LV 109/13, 17 08:59:29 LV 107/13, 17 08:59:35 LVp 109/8, 16 08:59:41 AOp 120/63 (88) 08:59:46 Signed By Perez Multani MD On 03/20/2022 09:21:45 Perez Multani MD
== END 2022-03-20 11:42 | disposition home or self-care (01) ==
LOC: CLSP 06:38
PROVIDERS: PCP Family Medicine; Visit Provider Internal Medicine Cardiovascular Disease
DX: R07.9 Chest pain, unspecified (principal); M06.9 Rheumatoid arthritis, unspecified; E78.5 Hyperlipidemia, unspecified; Z95.5 Presence of coronary angioplasty implant and graft; I25.10 Atherosclerotic heart disease of native coronary artery without angina pectoris; M79.7 Fibromyalgia; I25.2 Old myocardial infarction; Z79.82 Long term (current) use of aspirin
CPT/HCPCS: 36415; 80048; 85025; 93458; 99152; 99153; C1760; J7040; C1769; Q9967

== ENCOUNTER → 2023-10-21 | Outpatient (CLI) | payer MEDICARE, OTHER, SELFPAY ==
[2021-12-22 14:59] VITALS: BMI 26.6
[2023-10-21 12:54] LABS: Absolute Lymphocyte Count 2.29 X10^3/uL (0.83-4.51); Absolute Neutrophil Count 2.6 X10^3/uL (2.0-7.7); Basophil# 0.05 X10^3/uL; Basophil% 0.9 % (0-1); Eosinophil# 0.04 X10^3/uL; Eosinophils% 0.7 % (0-5); Hematocrit 42.4 % (37-47); Hemoglobin 14.1 g/dL (12.0-15.0); Lymphocyte # 2.29 X10^3/ul (0.83-4.51); Mean Corp Hgb Conc 33.3 g/dL (32-36); Mean Corpuscular Hgb 31.3 pg (27.0-32.0); Mean Corpuscular Volume 94.2 fL (81-99); Mean Platelet Vol. 10.2 fl (6.2-12.0); Monocyte# 0.46 X10^3/uL; Monocyte% 8.4 % (0-10); NRBC Flagged by Analyzer 0 % (0-5); Neutrophil # 2.55 X10^3/uL (2.7-7.7); Neutrophil % 46.9 % (47-70); Platelet Count 334 K/mm3 (150-450); RBC Distribution Width CV 13.5 % (11.6-14.6); RBC Distribution Width SD 46.8 fl (35.1-43.9); White Blood Count 5.5 K/mm3 (4.4-11.0)
[2023-10-21 13:10] LABS: BNP,B-Type NATRIURETIC PEPTIDE 13.7 pg/mL (0-100)
[2023-10-21 13:55] LABS: Anion Gap 7 (5-15); BUN 19 mg/dL (7-18); BUN/Creat Ratio 27.1 RATIO (10-20); Calcium,Total 9.1 mg/dL (8.5-10.1); Chloride 106 mmol/L (98-107); EST Glomerular Filtration Rate 88 mL/min (>60); Est Glom Filt Rate - Afr Amer 107 mL/min (>60); Glucose 93 mg/dL (74-106); Magnesium 2.1 mg/dL (1.6-2.6); Potassium 4.1 mmol/L (3.5-5.1); Sodium Level 138 mmol/L (136-145); Thyroid Stim Hormone (TSH) 0.97 uIU/mL (0.358-3.74)
== END | disposition home or self-care (01) ==
LOC: LAB 11:22
PROVIDERS: PCP Family Medicine; Referring Provider Nurse Practitioner Gerontology; Visit Provider Nurse Practitioner Gerontology
DX: R06.09 Other forms of dyspnea (principal); R53.83 Other fatigue
CPT/HCPCS: 36415; 80048; 83735; 83880; 84443; 85025

== ENCOUNTER → 2023-11-22 | Outpatient (CLI) | payer MEDICARE, OTHER, SELFPAY ==
[2021-12-22 14:59] VITALS: BMI 26.6
--- NOTE | 2023-11-22 07:14 | ECHOCS_ITS ---
Reason For Study: CRUZ Procedure This was a 2D Doppler, Color Flow transthoracic echocardiogram. Contrast injection was performed. The study was technically difficult. Exam performed in department. Left Ventricle Normal LV size. Left ventricular systolic function is normal. The estimated ejection fraction is 56 %. Stage 1 diastolic dysfunction. No regional wall motion abnormalities noted. Right Ventricle Normal RV size. Normal systolic function. Atria Normal left atrium. Normal right atrium. Mitral Valve Normal mitral valve. Tricuspid Valve Normal tricuspid valve. Mild tricuspid valve insufficiency. Aortic Valve Trisinus/trileaflet aortic valve. Pulmonic Valve The pulmonic valve is not well visualized. Great Vessels Normal aortic root. The pulmonary artery is normal size. Normal inferior vena cava. Pericardium/Pleural No pericardial effusion. Medication 22 gauge I.V. with prn adaptor inserted into right arm. Diluted definity 2ml given slow IV push to enhance endocardial definition. MMode/2D Measurements & Calculations LVIDd: 4.3 cm IVSd: 0.86 cm Ao root diam: 3.1 cm LVIDs: 2.9 cm LVPWd: 0.99 cm RVDd: 2.9 cm FS: 33.1 % LAV(MOD-bp): 34.5 ml LVAd ap4: 26.6 cm2 SV(MOD-sp4): 43.0 ml LAV(MOD-bp) Indexed: 19.7 ml/m2 LVLd ap4: 7.4 cm LAV(MOD-sp2): 39.8 ml EDV(MOD-sp4): 77.4 ml LAV(MOD-sp4): 27.0 ml EDV(sp4-el): 81.0 ml LVAs ap4: 16.1 cm2 LVLs ap4: 6.1 cm ESV(MOD-sp4): 34.4 ml ESV(sp4-el): 35.7 ml EF(MOD-sp4): 55.6 % EF(sp4-el): 55.9 % SV(sp4-el): 45.3 ml LA A4 area: 12.7 cm2 RA A4 area: 12.6 cm2 Time Measurements MV dec time: 0.19 sec Doppler Measurements & Calculations MV E max omega: 66.1 cm/sec Lat Peak E' Omega: 8.7 cm/sec Med Peak E' Omega: 6.6 cm/sec MV A max omega: 89.8 cm/sec E/E' lat: 7.6 E/E' med: 9.9 MV E/A: 0.74 MV V2 max: 91.3 cm/sec MV P1/2t max omega: 73.5 cm/sec Ao V2 max: 113.9 cm/sec MV max P.3 mmHg MV P1/2t: 65.8 msec Ao max P.2 mmHg MV V2 mean: 43.4 cm/sec Ao V2 mean: 72.5 cm/sec MV mean P.93 mmHg MV dec slope: 326.8 cm/sec2 Ao mean P.5 mmHg MV V2 VTI: 28.1 cm MVA(P1/2t): 3.3 cm2 Ao V2 VTI: 28.3 cm AV (velocity ratio): 0.74 LV V1 max: 87.7 cm/sec PA V2 max: 59.9 cm/sec TR max omega: 215.7 cm/sec LV V1 max P.1 mmHg TR max P.6 mmHg LV V1 mean P.7 mmHg LV V1 mean: 60.8 cm/sec LV V1 VTI: 21.1 cm ECHO/Echo Complete W/ Contrast Interpretation Summary Normal LV size. Left ventricular systolic function is normal. The estimated ejection fraction is 56 %. Stage 1 diastolic dysfunction. Contrast injection was performed. Ordering Physician: Karina Ramos Referring Physician: Karina Ramos Performed By: Maldonado Mosley RCS
--- NOTE | 2023-11-22 16:16 | STRESSREP ---
Stress Test Report Exercise myocardial perfusion stress test. 68-year-old lady with a history of coronary artery disease and chest pressure Stress protocol: Resting EKG demonstrates normal sinus rhythm with a rate of 60 bpm resting blood pressure is 132/78 mmHg. The patient exercised according to the regular Gerard protocol for a total duration of 6 minutes attaining a maximum heart rate of 144 bpm which was 94% of maximum predicted heart rate; the maximum workload was 7 metabolic equivalents. At rest there were no ST or T wave changes noted to suggest ischemia and at peak exercise upsloping ST changes only were noted which did not meet the criteria for ischemia. No clinical angina was noted the test was terminated due to the target heart rate being achieved/fatigue. The peak blood pressure was 170/68 mmHg. Rate-pressure product was 24,400. Myocardial perfusion protocol. 11.8 mCi of technetium 99m sestamibi was injected at rest. The patient exercised according to regular Gerard protocol for total duration of 6 minutes and at peak exercise 33.7 mCi of technetium 99m sestamibi was injected stress images were obtained stress and rest images were reconstructed in comparing the short axis vertical long and horizontal long axis. Gated images were also obtained. Perfusion SPECT analysis: Review of the stress images demonstrate normal uptake of tracer noted in all areas of the myocardium. The resting images similarly demonstrate normal uptake of tracer noted in all areas of the myocardium. No areas of reversibility are noted to suggest ischemia no previous infarct was noted. Gated SPECT analysis: The gated ejection fraction is 73%. Conclusion: Normal exercise myocardial perfusion stress test at a moderate workload Preserved ejection fraction.
== END | disposition home or self-care (01) ==
LOC: CVS 07:13
PROVIDERS: PCP Family Medicine; Referring Provider Nurse Practitioner Gerontology; Visit Provider Nurse Practitioner Gerontology
DX: R06.09 Other forms of dyspnea (principal); R53.83 Other fatigue
CPT/HCPCS: 78452; 93017; 93306; A9500; Q9957; A4216; C8929

== ENCOUNTER → 2023-11-25 | Outpatient (CLI) | payer MEDICARE, OTHER, SELFPAY ==
[2021-12-22 14:59] VITALS: BMI 26.6
--- NOTE | 2023-11-25 08:43 | RAD_ITS ---
INDICATION: CRUZ EXAMINATION/TECHNIQUE: X-RAY - XR Chest 2 Views COMPARISON: None. FINDINGS: LINES/DEVICES: None. LUNGS: No consolidation, edema or effusion. No pneumothorax. MEDIASTINUM AND CARDIOVASCULAR STRUCTURES: Cardiac silhouette not enlarged. BONES AND SOFT TISSUES: Dextrocurvature of the lower thoracic spine.. RAD/Chest PA and Lateral IMPRESSION: No radiographic evidence of acute cardiopulmonary disease. Electronically Signed: Tim Sanford MD at 3:16 EDT ,
[2023-11-25 09:48] LABS: D-Dimer Quantitative (DVT/PE) 0.35 FEU/ug/m (0.27-0.49)
== END | disposition home or self-care (01) ==
PROVIDERS: PCP Family Medicine; Referring Provider Nurse Practitioner Gerontology; Visit Provider Nurse Practitioner Gerontology
DX: R06.09 Other forms of dyspnea (principal)
CPT/HCPCS: 36415; 71046; 85379; 94060; 94726; 94729